=== PATIENT | female | born 1945 | race Caucasian/White ===

== ENCOUNTER → 2016-08-22 | Outpatient (CLI) | payer MEDICARE, OTHER ==
[2016-08-22 10:53] LABS: Hematocrit 46.1 % (36.0-46.0); Hemoglobin 14.8 g/dL (12.2-16.2); Mean Corpuscular Hemoglobin 28.3 pg (28.0-32.0); Mean Corpuscular Volume 88.3 fL (80.0-100.0); Mean Platelet Volume 8.1 fL (7.4-10.4); Platelet Count (auto) 413 10^3/uL (140-450); SUSPECT SEE PRINTOUT; White Blood Cell 10.1 10^3/uL (4.4-10.8)
[2016-08-22 11:04] LABS: Albumin 3.4 g/dL (3.4-5.0); BUN/Creatinine Ratio 14.7; Bilirubin, Total 0.3 mg/dL (0.2-1.0); Calcium 8.8 mg/dL (8.5-10.1); Potassium 3.6 mmol/L (3.5-5.1); Total Protein 7.3 g/dL (6.4-8.2)
[2016-08-22 11:17] LABS: Metamyelocytes % 0; Myelocytes % 0; Promyelocytes % 0; Reactive Lymphocytes 0
[2016-08-22 11:19] LABS: Platelet Estimate Adequate; RBC Morphology Normal
== END | disposition home or self-care (01) ==
LOC: LAB 10:18
PROVIDERS: ATTEND Internal Medicine
DX: I10 Essential (primary) hypertension (principal); E66.9 Obesity, unspecified; Z79.899 Other long term (current) drug therapy
CPT/HCPCS: 36415; 80053; 80061; 80307; 82043; 83036; 84439; 84443; 85007; 85027; 85652; 86141

== ENCOUNTER 2017-05-11 10:01 | Emergency (ER) | payer MEDICARE, MEDICAID ==
[~2017-05-11] VITALS: Ht 160 cm; Wt 109.8 kg
[2017-05-11 11:16] VITALS: BP 132/78
[2017-05-11] MEDS ORDERED: HYDROcodone-ACET 5/325MG TAB PO ONE (12:00)
[2017-05-11] MEDS ORDERED: KETOROLAC TROMETH 30 MG/ML 1ML VIAL IM ONE (12:00)
[2017-05-21] MEDS ORDERED: ALBUAER3 IN (15:08)
[2017-05-21] MEDS ORDERED: OXYB10TA13 PO (15:08)
[2017-05-21] MEDS ORDERED: IBUP800T24 PO (15:08)
[2017-05-21] MEDS ORDERED: FLUO-125 PO (15:08)
== END 2017-05-11 12:28 | disposition home or self-care (01) ==
LOC: ER 10:01
DX: S52.502A Unspecified fracture of the lower end of left radius, initial encounter for closed fracture (principal); J44.9 Chronic obstructive pulmonary disease, unspecified; Z90.49 Acquired absence of other specified parts of digestive tract; Z90.89 Acquired absence of other organs; W19.XXXA Unspecified fall, initial encounter; Y93.89 Activity, other specified; Y99.8 Other external cause status; Y92.89 Other specified places as the place of occurrence of the external cause
CPT/HCPCS: 29125; 73090; 73110; 73130; 96372; 99284; J1885

== ENCOUNTER 2017-05-25 09:45 | Day surgery (SDC) | payer MEDICARE, MEDICAID ==
[2017-05-21 14:49] LABS: Basophils # (auto) 0.1 uL; Basophils % (auto) 1.3 % (0.0-2.0); Eosinophils # (auto) 0.5 uL; Hematocrit 40.5 % (36.0-46.0); Hemoglobin 13.3 g/dL (12.2-16.2); Lymphocytes # (auto) 1.4 uL; Lymphocytes % (auto) 21.8 % (10.0-50.0); Mean Corpuscular Hemoglobin 30.9 pg (28.0-32.0); Mean Corpuscular Hgb Conc. 32.9 g/dL (32.0-36.0); Mean Corpuscular Volume 94.1 fL (80.0-100.0); Monocytes # (auto) 0.6 uL; Monocytes % (auto) 8.5 % (0.0-12.0); Neutrophils # (auto) 4.1 uL; Neutrophils % (auto) 61.4 % (37.0-80.0); Nucleated Red Blood Cells % 0.1 %; Platelet Count (auto) 355 10^3/uL (140-450); Red Cell Distribution Width 13.5 % (11.8-14.3); White Blood Cell 6.6 10^3/uL (4.4-10.8)
[2017-05-21 15:02] LABS: INR 0.98 (0.9-1.15); Partial Thromboplastin Time 28.1 sec (22.64-33.71); Prothrombin Time 10.7 sec (9.37-12.3)
[2017-05-21 15:05] LABS: Albumin 3.3 g/dL (3.4-5.0); BUN/Creatinine Ratio 16.2; Bilirubin, Total 0.4 mg/dL (0.2-1.0); Calcium 8.6 mg/dL (8.5-10.1); Potassium 3.7 mmol/L (3.5-5.1); Total Protein 7.3 g/dL (6.4-8.2)
[~2017-05-25] VITALS: Ht 157.5 cm; Wt 66.2 kg
[~2017-05-25 09:45] MED LIST: ALBUAER3 IN; FLUO-125 PO; IBUP800T24 PO; OXYB10TA13 PO
[2017-05-25] MEDS ORDERED: ceFAZolin 1GM/50ML 50 ML IV ONE (12:09)
[2017-05-25] MEDS ORDERED: ETOMIDATE (2MG/ML) 20ML VIAL IV ONE (12:21)
[2017-05-25] MEDS ORDERED: LIDOCAINE 1% (LOCAL ANESTH.) PF 5ml SDV ONE ×3 (13:05→13:54)
[2017-05-25] MEDS ORDERED: ROCURONIUM 10MG/ML 10ML VIAL IV ONE (13:11)
[2017-05-25] MEDS ORDERED: MIDAZOLAM HCL 1MG/1ML-2 ML VIAL ONE (13:12)
[2017-05-25] MEDS ORDERED: BUPIVACAINE 0.25% INJ 50ML VIAL ONE (13:53)
[2017-05-25] MEDS ORDERED: fentaNYL CITRATE 100 MCG/2 ML VL ONE (14:35)
[2017-05-25] MEDS ORDERED: NALOXONE HCL 0.4 MG/ML VIAL IV PRN (14:45)
[2017-05-25] MEDS ORDERED: ONDANSETRON HCL 4 MG/2 ML VIAL IV ONE (14:45)
[2017-05-25] MEDS ORDERED: hydrALAZINE HCL 20 MG/ML VL IV PRN (14:45)
[2017-05-25] MEDS ORDERED: ePHEDrine SULFATE 50 MG/ML AMP ONE (14:58)
[2017-05-25] MEDS ORDERED: ESMOLOL HCL 10 ML IV ONE (14:59)
[2017-05-25] MEDS ORDERED: KETOROLAC TROMETH 30 MG/ML 1ML VIAL ONE (16:55)
[2017-05-25] MEDS ORDERED: ALBUTEROL SULF 2.5 MG/0.5ML(0.5%) NEB SOLN NEB PRN (17:15)
[2017-05-25] MEDS: MORPHINE SULFATE 4 MG/ML SYR/VIAL IV PRN ×4 (17:25→17:55)
[2017-05-25 18:15] VITALS: BP 137/92
== END 2017-05-25 18:33 | disposition home or self-care (01) ==
LOC: SUR 09:45
PROVIDERS: ATTEND Orthopaedic Surgery Adult Reconstructive Orthopaedic Surgery
DX: S52.572A Other intraarticular fracture of lower end of left radius, initial encounter for closed fracture (principal); W19.XXXA Unspecified fall, initial encounter; Y93.89 Activity, other specified; Y92.9 Unspecified place or not applicable; Y99.9 Unspecified external cause status; J45.909 Unspecified asthma, uncomplicated; Z90.49 Acquired absence of other specified parts of digestive tract; I10 Essential (primary) hypertension; M19.90 Unspecified osteoarthritis, unspecified site; E66.9 Obesity, unspecified; F32.9 Major depressive disorder, single episode, unspecified; Z87.891 Personal history of nicotine dependence; G47.33 Obstructive sleep apnea (adult) (pediatric)
CPT/HCPCS: 25608; 36415; 73100; 76000; 80053; 85025; 85610; 85730; J0690; J1885; J2250; J2270; J3010; J3490

== ENCOUNTER → 2018-11-17 | Outpatient (CLI) | payer MEDICARE, MEDICAID ==
[~2018-11-17] MED LIST changes: -OXYB10TA13 PO; +OXYB10TA14 PO
[2018-11-17 10:28] LABS: Basophils # (auto) 0 uL; Basophils % (auto) 0.6 % (0.0-2.0); Eosinophils # (auto) 0.5 uL; Eosinophils % (auto) 8.3 % (0.0-7.0); Hematocrit 39.4 % (36.0-46.0); Hemoglobin 13.6 g/dL (12.2-16.2); Lymphocytes # (auto) 1.8 uL; Lymphocytes % (auto) 29.6 % (10.0-50.0); Mean Corpuscular Hemoglobin 30.9 pg (28.0-32.0); Mean Corpuscular Hgb Conc. 34.4 g/dL (32.0-36.0); Mean Corpuscular Volume 89.9 fL (80.0-100.0); Monocytes # (auto) 0.5 uL; Monocytes % (auto) 8.1 % (0.0-12.0); Neutrophils # (auto) 3.3 uL; Neutrophils % (auto) 53.4 % (37.0-80.0); Platelet Count (auto) 270 10^3/uL (140-450); Red Blood Cells 4.38 10^6/uL (4.0-5.20); Red Cell Distribution Width 12.3 % (11.8-14.3); White Blood Cell 6.1 10^3/uL (4.4-10.8)
[2018-11-17 10:49] LABS: Albumin 3.4 g/dL (3.4-5.0); Calcium 8.7 mg/dL (8.5-10.1); Potassium 3.9 mmol/L (3.5-5.1)
[2018-11-17 10:53] LABS: BUN/Creatinine Ratio 17.8; Bilirubin, Total 0.5 mg/dL (0.2-1.0); Total Protein 6.9 g/dL (6.4-8.2)
== END | disposition home or self-care (01) ==
LOC: LAB 09:51
PROVIDERS: ATTEND Nurse Practitioner
DX: Z00.00 Encounter for general adult medical examination without abnormal findings (principal); E78.5 Hyperlipidemia, unspecified
CPT/HCPCS: 36415; 80053; 80061; 84443; 85025

== ENCOUNTER 2019-09-02 01:52 | Inpatient (IN) | payer MEDICARE, MEDICAID ==
[~2019-09-02] VITALS: Ht 165.1 cm; Wt 117.4 kg
[2019-09-02 04:48] LABS: Basophils # (auto) 0.1 10 ^3/uL (0-0.2); Basophils % (auto) 0.7 % (0.0-2.0); Eosinophils # (auto) 0 10 ^3/uL (0-0.8); Eosinophils % (auto) 0.6 % (0.0-7.0); Hematocrit 41.2 % (36.0-46.0); Hemoglobin 13.3 g/dL (12.2-16.2); Lymphocytes # (auto) 0.5 10 ^3/uL (0.4-5.4); Lymphocytes % (auto) 6.3 % (10.0-50.0); Mean Corpuscular Hemoglobin 29.2 pg (28.0-32.0); Mean Corpuscular Hgb Conc. 32.3 g/dL (32.0-36.0); Mean Corpuscular Volume 90.5 fL (80.0-100.0); Monocytes # (auto) 0.8 10 ^3/uL (0-1.3); Monocytes % (auto) 10.4 % (0.0-12.0); Neutrophils # (auto) 6.5 10 ^3/uL (1.6-8.6); Platelet Count (auto) 323 10^3/uL (140-450); Red Blood Cells 4.56 10^6/uL (4.0-5.20); Red Cell Distribution Width 13.4 % (11.8-14.3)
[2019-09-02 05:15] LABS: INR 1.09 (0.9-1.15)
[2019-09-02 05:31] LABS: Albumin 2.9 g/dL (3.4-5.0); Anion Gap 8 (5-15); Blood Urea Nitrogen 22 mg/dL (7-18); Calcium 8.3 mg/dL (8.5-10.1); Carbon Dioxide 26 mmol/L (21-32); Chloride 107 mmol/L (98-107); Glucose 117 mg/dL (74-106); Sodium 141 mmol/L (136-145)
[2019-09-02 05:33] LABS: BUN/Creatinine Ratio 22.4; GFR African American 71 mL/min; GFR Non-African American 59 mL/min
[2019-09-02 05:38] LABS: Alanine Aminotransferase 14 U/L (13-56); Alkaline Phosphatase 75 U/L (45-117); Aspartate Aminotransferase 13 U/L (15-37); Bilirubin, Total 0.5 mg/dL (0.2-1.0)
[2019-09-02] MEDS ORDERED: DEXTROSE (50%) 50ML SYRG IV PRN (11:00)
[2019-09-02] MEDS ORDERED: ONDANSETRON HCL 4 MG/2 ML VIAL IV PRN (11:00)
[2019-09-02] MEDS ORDERED: MORPHINE SULF INJ 2 MG/ML SYRINGE 1ML IV PRN (11:00)
[2019-09-02] MEDS ORDERED: ACETAMINOPHEN 500 MG TAB PO PRN (11:00)
[2019-09-02] MEDS ORDERED: LABETALOL HCL 5 MG/ML ML 20ML VIAL IV PRN (11:00)
[2019-09-02] MEDS ORDERED: ALBUTEROL SULF 2.5 MG/0.5ML(0.5%) NEB SOLN NEB PRN (11:00)
[2019-09-02] MEDS ORDERED: METOPROLOL TARTRATE 25 MG TAB PO ONE (11:00)
[2019-09-02] MEDS ORDERED: NITROGLYCERIN 0.4 MG SL TAB SL PRN (11:00)
[2019-09-02] MEDS: ACCU-CHEK COMFORT CURVE STRIP VI SCH ×3 (12:49→23:45)
[2019-09-02] MEDS: levoFLOXacin 500MG 100 ML IV SCH (13:14)
[2019-09-02] MEDS: SODIUM CHLORIDE 0.9% 1,000 ML IV SCH ×2 (13:14→23:51)
[2019-09-02] MEDS ORDERED: PROC10TA2 PO (13:32)
[2019-09-02 13:33] LABS: Urine Bacteria NONE SEEN /hpf (None Seen); Urine Blood 1+ /uL (Negative); Urine Hyaline Cast FEW /lpf (0 - 2); Urine Mucus FEW (None Seen); Urine Specific Gravity 1.032 (1.001-1.035); Urine WBC 7 /hpf (0 - 5)
[2019-09-02 13:40] LABS: Amphetamine Screen, Urine NEGATIVE (NEGATIVE); Barbiturate Scree,Urine NEGATIVE (NEGATIVE); Benzodiazephine Screen, Urine NEGATIVE (NEGATIVE); Cannabinoid Screen, Urine NEGATIVE (NEGATIVE); Cocaine Screen, Urine NEGATIVE (NEGATIVE); Opiate Scree,Urine NEGATIVE (NEGATIVE); Phencyclidine Screen, Urine NEGATIVE (NEGATIVE)
[2019-09-02] MEDS ORDERED: risperiDONE 1 MG TAB PO ONE (18:00)
[2019-09-02 21:05] VITALS: BP 116/67
[2019-09-02] MEDS: ATORVASTATIN 20 MG TAB PO SCH (21:47)
[2019-09-02] MEDS: ENOXAPARIN SOD 120 MG/0.8 ML SYRINGE SC SCH (21:47)
[2019-09-02] MEDS ORDERED: BUDESONIDE (INHALATION) 0.5 MG/2 ML NEB NEB SCH (22:00)
[2019-09-02] MEDS: METOPROLOL TARTRATE 25 MG TAB PO SCH (22:06)
[2019-09-02 23:57] VITALS: BP 116/61
[2019-09-03 05:00] VITALS: BP 115/74
[2019-09-03] MEDS: ACCU-CHEK COMFORT CURVE STRIP VI SCH ×4 (07:40→21:48)
[2019-09-03 09:00] VITALS: BP 84/64
[2019-09-03 09:23] LABS: Albumin 2.9 g/dL (3.4-5.0); Calcium 8.5 mg/dL (8.5-10.1); Potassium 3.6 mmol/L (3.5-5.1)
[2019-09-03 09:27] LABS: BUN/Creatinine Ratio 22.6; Bilirubin, Total 0.5 mg/dL (0.2-1.0); Total Protein 6.9 g/dL (6.4-8.2)
[2019-09-03] MEDS: METOPROLOL TARTRATE 25 MG TAB PO SCH ×2 (10:00→22:31)
[2019-09-03] MEDS ORDERED: ENOXAPARIN SOD 40 MG/0.4 ML SYRINGE SC SCH (10:00)
[2019-09-03] MEDS: risperiDONE 1 MG TAB PO SCH (10:40)
[2019-09-03] MEDS: FLUoxetine HCL 20 MG CAP PO SCH (10:40)
[2019-09-03] MEDS: ASPirin 81 mg TAB PO SCH (10:41)
[2019-09-03] MEDS: levoFLOXacin 500MG 100 ML IV SCH (10:41)
[2019-09-03] MEDS: CHOLECALCIFEROL (VITD3) 1,000UNIT=25mCg TAB PO SCH (10:41)
[2019-09-03] MEDS: ASCORBIC ACID 1,000 MG TAB PO SCH (10:41)
[2019-09-03] MEDS: ZINC SULFATE 220mg CAP or TAB PO SCH (10:42)
[2019-09-03] MEDS: ENOXAPARIN SOD 120 MG/0.8 ML SYRINGE SC SCH ×2 (10:42→22:31)
[2019-09-03] MEDS ORDERED: BUDESONIDE (INHALATION) 0.5 MG/2 ML NEB NEB ONE (12:00)
[2019-09-03 13:00] VITALS: BP 96/63
[2019-09-03] MEDS: SODIUM CHLORIDE 0.9% 1,000 ML IV SCH (13:10)
[2019-09-03] MEDS: ALBUTEROL SULF HFA 90MCG INH 200DOSE IN SCH ×2 (14:40→22:44)
[2019-09-03 17:56] VITALS: BP 100/70
[2019-09-03] MEDS: traMADol HCL 50 MG TAB PO PRN (20:24)
[2019-09-03 22:00] VITALS: BP 117/77
[2019-09-03] MEDS: ATORVASTATIN 20 MG TAB PO SCH (22:30)
[2019-09-03] MEDS: BUDESONIDE (INHALATION) 0.5 MG/2 ML NEB NEB SCH (22:41)
[2019-09-04] MEDS: SODIUM CHLORIDE 0.9% 1,000 ML IV SCH ×2 (02:54→17:02)
[2019-09-04 03:32] VITALS: BP 117/77
[2019-09-04] MEDS: ALBUTEROL SULF HFA 90MCG INH 200DOSE IN SCH ×3 (06:40→22:00)
[2019-09-04] MEDS: ACCU-CHEK COMFORT CURVE STRIP VI SCH ×4 (06:50→22:30)
[2019-09-04 07:25] VITALS: BP 104/74
[2019-09-04 09:00] VITALS: BP 133/65
[2019-09-04] MEDS: BUDESONIDE (INHALATION) 0.5 MG/2 ML NEB NEB SCH ×2 (09:37→23:18)
[2019-09-04] MEDS: FLUoxetine HCL 20 MG CAP PO SCH (10:48)
[2019-09-04] MEDS: ENOXAPARIN SOD 120 MG/0.8 ML SYRINGE SC SCH ×2 (10:48→22:29)
[2019-09-04] MEDS: ASCORBIC ACID 1,000 MG TAB PO SCH (10:48)
[2019-09-04] MEDS: levoFLOXacin 500MG 100 ML IV SCH (10:48)
[2019-09-04] MEDS: ZINC SULFATE 220mg CAP or TAB PO SCH (10:48)
[2019-09-04] MEDS: ASPirin 81 mg TAB PO SCH (10:48)
[2019-09-04] MEDS: METOPROLOL TARTRATE 25 MG TAB PO SCH ×2 (10:49→22:00)
[2019-09-04] MEDS: risperiDONE 1 MG TAB PO SCH (10:49)
[2019-09-04] MEDS: CHOLECALCIFEROL (VITD3) 1,000UNIT=25mCg TAB PO SCH (10:50)
[2019-09-04 13:00] VITALS: BP 113/60
[2019-09-04] MEDS: traMADol HCL 50 MG TAB PO PRN ×2 (15:20→21:27)
[2019-09-04 17:00] VITALS: BP 94/64
[2019-09-04 22:00] VITALS: BP 95/62
[2019-09-04] MEDS: ATORVASTATIN 20 MG TAB PO SCH (22:29)
[2019-09-05] VITALS (7 sets, daily range): BP systolic 100–142; BP diastolic 60–91
[2019-09-05] MEDS: SODIUM CHLORIDE 0.9% 1,000 ML IV SCH (05:34)
[2019-09-05] MEDS: ACCU-CHEK COMFORT CURVE STRIP VI SCH ×2 (06:10→11:58)
[2019-09-05] MEDS: ALBUTEROL SULF HFA 90MCG INH 200DOSE IN SCH ×3 (06:35→22:00)
[2019-09-05] MEDS: traMADol HCL 50 MG TAB PO PRN ×3 (06:36→21:32)
[2019-09-05] MEDS: BUDESONIDE (INHALATION) 0.5 MG/2 ML NEB NEB SCH (07:31)
[2019-09-05] MEDS: METOPROLOL TARTRATE 25 MG TAB PO SCH (09:34)
[2019-09-05] MEDS: levoFLOXacin 500MG 100 ML IV SCH (09:39)
[2019-09-05] MEDS: FLUoxetine HCL 20 MG CAP PO SCH (09:40)
[2019-09-05] MEDS: ZINC SULFATE 220mg CAP or TAB PO SCH (09:40)
[2019-09-05] MEDS: ASPirin 81 mg TAB PO SCH (09:40)
[2019-09-05] MEDS: ASCORBIC ACID 1,000 MG TAB PO SCH (09:41)
[2019-09-05] MEDS: CHOLECALCIFEROL (VITD3) 1,000UNIT=25mCg TAB PO SCH (09:41)
[2019-09-05] MEDS: risperiDONE 1 MG TAB PO SCH (09:41)
[2019-09-05] MEDS: ENOXAPARIN SOD 120 MG/0.8 ML SYRINGE SC SCH (09:42)
[2019-09-05 09:54] LABS: Free T4 (Free Thyroxine) 0.85 ng/dL (0.89-1.76)
[2019-09-05 09:55] LABS: Free T3 1.73 pg/mL (2.3-4.2)
[2019-09-05] MEDS ORDERED: cefTRIAXone 1GM/50ML D5W 50 ML IV ONE (12:15)
[2019-09-05] MEDS: ATORVASTATIN 20 MG TAB PO SCH (21:31)
[2019-09-06] MEDS: BUDESONIDE (INHALATION) 0.5 MG/2 ML NEB NEB SCH ×2 (00:17→07:35)
[2019-09-06] MEDS: traMADol HCL 50 MG TAB PO PRN ×2 (02:40→16:24)
[2019-09-06 05:00] VITALS: BP 114/94
[2019-09-06 06:17] LABS: Basophils # (auto) 0 10 ^3/uL (0-0.2); Basophils % (auto) 0.5 % (0.0-2.0); Eosinophils # (auto) 0.1 10 ^3/uL (0-0.8); Eosinophils % (auto) 1.6 % (0.0-7.0); Hematocrit 37.1 % (36.0-46.0); Hemoglobin 12.3 g/dL (12.2-16.2); Lymphocytes # (auto) 0.7 10 ^3/uL (0.4-5.4); Lymphocytes % (auto) 9.8 % (10.0-50.0); Mean Corpuscular Hemoglobin 29.9 pg (28.0-32.0); Mean Corpuscular Hgb Conc. 33.1 g/dL (32.0-36.0); Mean Corpuscular Volume 90.2 fL (80.0-100.0); Monocytes % (auto) 14.6 % (0.0-12.0); Neutrophils % (auto) 73.5 % (37.0-80.0); Nucleated Red Blood Cells % 0.1 %; Platelet Count (auto) 312 10^3/uL (140-450); Red Blood Cells 4.11 10^6/uL (4.0-5.20); Red Cell Distribution Width 13.3 % (11.8-14.3); White Blood Cell 6.8 10^3/uL (4.4-10.8)
[2019-09-06 06:33] LABS: Albumin 2.6 g/dL (3.4-5.0); Calcium 8.6 mg/dL (8.5-10.1); Potassium 3.9 mmol/L (3.5-5.1)
[2019-09-06 06:37] LABS: BUN/Creatinine Ratio 18.5; Bilirubin, Total 0.7 mg/dL (0.2-1.0); Total Protein 6.6 g/dL (6.4-8.2)
[2019-09-06] MEDS: ALBUTEROL SULF HFA 90MCG INH 200DOSE IN SCH ×2 (07:35→14:25)
[2019-09-06 08:00] VITALS: BP 120/71
[2019-09-06 09:00] VITALS: BP_SYST 152; BP_SYST 93; BP_DIAS 46; BP_DIAS 78
[2019-09-06] MEDS ORDERED: cefTRIAXone 1GM/50ML D5W 50 ML IV SCH (09:00)
[2019-09-06] MEDS: ASPirin 81 mg TAB PO SCH (09:46)
[2019-09-06] MEDS: FLUoxetine HCL 20 MG CAP PO SCH (09:47)
[2019-09-06] MEDS: risperiDONE 1 MG TAB PO SCH (09:47)
[2019-09-06] MEDS: ZINC SULFATE 220mg CAP or TAB PO SCH (09:47)
[2019-09-06] MEDS: CHOLECALCIFEROL (VITD3) 1,000UNIT=25mCg TAB PO SCH (09:48)
[2019-09-06] MEDS: ASCORBIC ACID 1,000 MG TAB PO SCH (09:48)
[2019-09-06] MEDS ORDERED: ENOXAPARIN SOD 40 MG/0.4 ML SYRINGE SC SCH (10:00)
[2019-09-06 13:00] VITALS: BP 146/70
[2019-09-06 17:00] VITALS: BP 124/78
[2019-09-06] MEDS: ATORVASTATIN 20 MG TAB PO SCH (21:11)
[2019-09-06 22:06] VITALS: BP 97/64
== END 2019-09-06 22:00 | disposition home or self-care (01) | DRG 137 ==
LOC: EDBD 01:52 → ER 01:53 → TELE 01:54 → TELE-EAST 21:05
PROVIDERS: ADMIT Internal Medicine; ATTEND Internal Medicine
DX: U07.1 COVID-19 (principal); G92 Toxic encephalopathy; J12.89 Other viral pneumonia; I48.91 Unspecified atrial fibrillation; E87.6 Hypokalemia; N39.0 Urinary tract infection, site not specified; R73.9 Hyperglycemia, unspecified; E66.01 Morbid (severe) obesity due to excess calories; F03.90 Unspecified dementia, unspecified severity, without behavioral disturbance, psychotic disturbance, mood disturbance, and anxiety; F17.200 Nicotine dependence, unspecified, uncomplicated; F32.9 Major depressive disorder, single episode, unspecified; K57.90 Diverticulosis of intestine, part unspecified, without perforation or abscess without bleeding; M19.90 Unspecified osteoarthritis, unspecified site; Z79.82 Long term (current) use of aspirin; Z79.899 Other long term (current) drug therapy; Z86.73 Personal history of transient ischemic attack (TIA), and cerebral infarction without residual deficits; Z68.41 Body mass index [BMI] 40.0-44.9, adult; J96.00 Acute respiratory failure, unspecified whether with hypoxia or hypercapnia; E44.1 Mild protein-calorie malnutrition
CPT/HCPCS: 36415; 70450; 71045; 72125; 74176; 80053; 80307; 81001; 82550; 82962; 83036; 83605; 83880; 84439; 84443; 84481; 84484; 85025; 85610; 85652; 85730; 86141; 87040; 87070; 87086; 87804; 87880; 93005; 93886; 94640; 96365; 96372; G0378; J0696; J1956

== ENCOUNTER 2024-03-30 10:07 | Inpatient (IN) | payer OTHER, MEDICAID ==
[~2024-03-30] VITALS: Ht 162.6 cm; Wt 101.2 kg
[~2024-03-30 10:07] MED LIST changes: +IBUP-1456 PO; -IBUP800T24 PO; +PROC10TA6 PO
--- NOTE | 2024-03-30 10:25 | ED.PDOC ---
History of Present Illness HPI Comments 78-year-old female came to the ER after a fall. Patient stood up from bed and fell landing on her buttocks. Denies loss of consciousness. When paramedics arrived her rhythm was irregular. She has no history of atrial fibrillation. She denies taking any medications. She is able to move all extremities. Her heart rate has been fluctuating from 70 to low 100. Saturation pristine on room air. Denies any other symptoms. Chief Complaint: Syncope Time Seen by MD: 10:08 Primary Care Provider: UNKNOWN Reviewed Notes: Nurses Notes, Medications, Allergies Allergies: Coded Allergies: No Known Drug Allergy (Verified Allergy, Unknown, 05/21/17) Home Meds Reported Medications Prochlorperazine Maleate (Compazine) 10 Mg Tb, 5 MG PO Q8HPRN PRN for NAUSEA / VOMITING, #15 TAB 09/02/19 Albuterol Sulfate (VENTOLIN MDI) 90 Mcg Ih, 1 PUFF IN Q6HP PRN for SHORTNESS OF BREATH 05/21/17 Oxybutynin Chloride (Ditropan Xl) 10 Mg Tab, 10 MG PO BID, TAB 05/21/17 Fluoxetine Hcl (Fluoxetine Hcl) 20 Mg Cap, 20 MG PO DAILY for 30 Days, MG 05/21/17 Ibuprofen (Ibuprofen) 800 Mg Tab, 800 MG PO BID PRN for PAIN, MG 05/21/17 Information Source: Patient, Emergency Med Personnel Mode of Arrival: EMS Severity: Moderate Timing: Hours Duration: Since onset Past Medical History PAST MEDICAL HISTORY: Asthma, COPD, Depression 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 Family History Family History: Pt Confused Social History Smoker: Pt Confused Alcohol: Pt Confused Drugs: Pt Confused Lives In: Home Constitutional: denies: chills, diaphoresis, fatigue, fever, malaise, sweats, weakness, others EENTM: denies: blurred vision, double vision, ear bleeding, ear discharge, ear drainage, ear pain, ear ringing, eye pain, eye redness, hearing loss, mouth pain, mouth swelling, nasal discharge, nose bleeding, nose congestion, nose pain, photophobia, tearing, throat pain, throat swelling, voice changes, others Respiratory: denies: cough, hemoptysis, orthopnea, SOB at rest, shortness of breath, SOB with excertion, stridor, wheezing, others Cardiovascular: reports: syncope; denies: chest pain, dizzy spells, diaphoresis, Dyspnea on exertion, edema, irregular heart beat, left arm pain, lightheadedness, palpitations, PND, others Gastrointestinal: denies: abdomen distended, abdominal pain, blood streaked bowels, constipated, diarrhea, dysphagia, difficulty swallowing, hematemesis, melena, nausea, poor appetite, poor fluid intake, rectal bleeding, rectal pain, vomiting, others Genitourinary: denies: abnormal vagina bleeding, burning, dyspareunia, dysuria, flank pain, frequency, hematuria, incontinence, pain, , vagina discharge, urgency, others Neurological: denies: dizziness, fainting, headache, left sided numbness, left sided weakness, numbness, paresthesia, pre-existing deficit, right sided numbness, right sided weakness, seizure, speech problems, tingling, tremors, weakness, others Musculoskeletal: denies: back pain, gout, joint pain, joint swelling, muscle pain, muscle stiffness, neck pain, others Integumetry: denies: bruises, change in color, change in hair/nails, dryness, laceration, lesions, lumps, rash, wounds, others Allergic/Immunocompromised: denies: Difficulty Healing, Frequent Infections, Hives, Itching, others Hematologic/Lymphatic: denies: anemia, blood clots, easy bleeding, easy bruising, swollen glands, others Endocrine: denies: excessive hunger, excessive sweating, excessive thirst, excessive urination, flushing, intolerance to cold, intolerance to heat, unexplained weight gain, unexplained weight loss, others Psychiatric: denies: anxiety, bipolar disorder, depression, hopeless, panic disorder, schizophrenia, sleepless, suicidal, others Physical Exam General Appearance: Moderate Distress HEENT: Normal ENT Inspection, Pharynx Normal, TMs Normal Neck: Full Range of Motion, Non-Tender, Normal, Normal Inspection Respiratory: Chest Non-Tender, Lungs Clear, No Accessory Muscle Use, No Respiratory Distress, Normal Breath Sounds Cardiovascular: No Edema, No JVD, No Murmur, No Gallop, Normal Peripheral Pulses, Regular Rate/Rhythm Breast Exam: Deferred Gastrointestinal: No Organomegaly, Non Tender, No Pulsatile Mass, Normal Bowel Sounds, Soft Genitalia: Deferred Pelvic: Deferred Rectal: Deferred Extremities: Normal inspection Musculoskeletal : Apperance: Normal Neurologic: Alert Cerebellar Function: NOT DONE Reflexes: NOT DONE Skin: Normal Color Peripheral Pulses: 3+ Radial (R), 3+ Radial (L) Lymphatic: No Adenopathy Was a procedure done? Was a procedure done?: No Differential Dx Considerations may include: Syncope Electrolyte imbalance X-Ray, Labs, Meds, VS Vital Signs Date Time Temp Pulse Resp B/P (MAP) Pulse Ox O2 Delivery O2 Flow Rate FiO2 03/30/24 10:08 98.0 74 16 105/55 (72) 94 Time of 1ST Reevaluation: 10:24 Reevaluation 1ST: Unchanged Patient Education/Counseling: Diagnosis, Treatment, Prognosis Family Education/Counseling: No Family Present Departure 1 Departure Time of Disposition: 10:24 Impression: Primary Impression: Syncope Qualified Codes: R55 - Syncope and collapse Additional Impression: Atrial fibrillation Qualified Codes: I48.0 - Paroxysmal atrial fibrillation Disposition: ADMITTED INPATIENT Admit to: Med Surg Condition: Guarded Critical Care Note Critical Care Time?: Yes (45 min-critical care time only) Stability Stability form required: No Heart Score Heart Score: Heart Score Response (Comments) Value History Slightly Suspicious 0 EKG Normal 0 Age >65 2 Risk Factors >3 or Hx ASHD 2 Troponin Normal limit 0 Total 4 MARY MCFARLAND MD Mar 30, 2024 10:25
--- NOTE | 2024-03-30 11:09 | DVH ---
CHEST RADIOGRAPH Indication: sob Technique: Single frontal view of the chest was obtained Comparison: CHEST PORTABLE on DOS: 09/06/19, CHEST PORTABLE on DOS: 09/03/19, CHEST PORTABLE on DOS: 12/12 FINDINGS: Lines and Tubes: None Lungs: No focal consolidation. Pleura: No effusion. No pneumothorax. Cardiomediastinal contours: Unremarkable Bones: No acute osseous abnormality. IMPRESSION: No acute cardiopulmonary disease.
[2024-03-30 11:12] LABS: Basophils # (auto) 0.1 10 ^3/uL (0-0.2); Basophils % (auto) 1.2 % (0.0-2.0); Eosinophils # (auto) 0.2 10 ^3/uL (0-0.8); Eosinophils % (auto) 4.9 % (0.0-7.0); Hematocrit 43.9 % (36.0-46.0); Hemoglobin 14.5 g/dL (12.2-16.2); Lymphocytes # (auto) 1.5 10 ^3/uL (0.4-5.4); Lymphocytes % (auto) 34.4 % (10.0-50.0); Mean Corpuscular Hemoglobin 30.5 pg (28.0-32.0); Mean Corpuscular Volume 92.4 fL (80.0-100.0); Monocytes # (auto) 0.4 10 ^3/uL (0-1.3); Monocytes % (auto) 8.5 % (0.0-12.0); Neutrophils # (auto) 2.2 10 ^3/uL (1.6-8.6); Nucleated Red Blood Cells % 0.1 %; Platelet Count (auto) 233 10^3/uL (140-450); Red Blood Cells 4.76 10^6/uL (4.0-5.20); Red Cell Distribution Width 13.7 % (11.8-14.3); White Blood Cell 4.3 10^3/uL (4.4-10.8)
[2024-03-30 11:19] LABS: Chloride 106 mmol/L (98-107); Potassium 3.8 mmol/L (3.5-5.1); Sodium 141 mmol/L (136-145)
[2024-03-30 11:20] LABS: Anion Gap 6 (5-15); Calcium 9.9 mg/dL (8.7-10.4); Carbon Dioxide 29 mmol/L (20-31)
[2024-03-30 11:25] LABS: BUN/Creatinine Ratio 20.2 (10.0-20.0); Blood Urea Nitrogen 19 mg/dL (9-23)
[2024-03-30 11:28] LABS: Glucose 109 mg/dL (74-106)
--- NOTE | 2024-03-30 13:30 | DVH ---
EXAM: CT HEAD WITHOUT CONTRAST HISTORY: syncope COMPARISON: HEAD WITHOUT CONTRAST on DOS: 09/02/19, CERVICAL WITHOUT CONTRAST on DOS: 09/02/19 TECHNIQUE: Axial images of the head were obtained and reformatted in coronal and sagittal planes. All CT scans at this medical facility are performed using dose modulation techniques as appropriate t o a performed exam including the following: Automated exposure control was utilized; adjustment of th e MA and/or KV according to patient size; and use of iterative reconstruction technique. CT Dose: CTDI volume is 57.04 mGy. Dose-length product is 1010.0 mGy*cm FINDINGS: There is no evidence of acute intracranial hemorrhage, mass, mass effect midline shift. There is no h ydrocephalus or extra-axial fluid collection. 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 There are moderate chronic small-vessel white matter ischemic changes. There is a small wedge defect in the right posterior cerebellum which May also relate to chronic infarct. The bryan-white ma tter differentiation otherwise appears maintained. The visualized paranasal sinuses and mastoid air cells are clear. The calvarium is intact. IMPRESSION: 1. No acute intracranial process. HS:Y
--- NOTE | 2024-03-30 15:36 | ECG ---
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
[2024-03-30] MEDS ORDERED: ALBUTEROL SULF 2.5 MG/0.5ML(0.5%) NEB SOLN NEB PRN (19:15)
[2024-03-30] MEDS ORDERED: NITROGLYCERIN 0.4 MG SL TAB SL PRN (19:15)
[2024-03-30] MEDS ORDERED: MORPHINE SULFATE INJ 2 MG/ml SYRG IV PRN (19:15)
--- NOTE | 2024-03-30 23:17 | DVH ---
Carotid Duplex Clinical History: syncope Comparison: None Technique: Duplex doppler evaluation of the extracranial carotid and vertebral arteries including color doppler and spectral/pulsed waveform analysis was performed. Findings: RIGHT SIDE: Mild plaque at right bifurcation. The peak systolic velocities are 68 cm/s in the CCA, 55 cm/s in the ICA. The ICA/CCA ratio is 0.8. The external carotid artery is patent with peak systolic velocity of 74 cm/s proximally. There is appropriate antegrade flow in the right vertebral artery. LEFT SIDE: Mild calcified plaque at left chronic bifurcation. The peak systolic velocities are 64 cm/s in the CCA, 65 cm/s in the ICA. The ICA/CCA ratio is 1.0. The external carotid artery is patent with peak systolic velocity of 76 cm/s proximally. There is appropriate antegrade flow in the left vertebral artery. IMPRESSION: No evidence of hemodynamically significant stenosis in bilateral carotid arteries. Reference: Radiology 2003; 229:340-346 Normal ICA PSV is <125 cm/sec and no plaque or intimal thickening is visible sonographically Additional criteria include ICA/CCA PSV ratio <2.0 and ICA EDV <40 cm/sec <50% ICA stenosis ICA PSV is <125 cm/sec and plaque or intimal thickening is visible sonographically Additional criteria include ICA/CCA PSV ratio <2.0 and ICA EDV <40 cm/sec 50-69% ICA stenosis ICA PSV is 125-230 cm/sec and plaque is visible sonographically Additional criteria include ICA/CCA PSV ratio of 2.0-4.0 and ICA EDV of 40-100 cm/sec 70% ICA stenosis but less than near occlusion ICA PSV is >230 cm/sec at visible plaque at luminal narrowing are seen at bryan-scale at color doppler ultrasound (the higher the doppler parameters lie above the threshold of 230 cm/sec, the greater the likelihood of severe disease) Additional criteria include ICA/CCA PSV ratio >4 and ICA EDV >100 cm/sec
[2024-03-30 23:31] VITALS: PULSE 90; RESP 18; O2SAT 98
[2024-03-30] MEDS: ACETAMINOPHEN 325 MG TAB PO PRN (23:43)
[2024-03-31] VITALS (15 sets, daily range): BP systolic 101–159; BP diastolic 48–92; PULSE 78–114; RESP 16–19; TEMP 97.7–98.9; O2SAT 92–98
--- NOTE | 2024-03-31 00:20 | DVHHP2 ---
History of Present Illness Reason for Visit: Syncope History of Present Illness 78-year-old female presents for evaluation of syncopal episode. Patient reports that today around seven in the morning she finished washing her face when she was walking back to her wheelchair she became dizzy. She reports waking up surrounded by her family. She was found on her wheelchair leaning to the side. Family reports patient being slightly confused for 30 minutes. Currently she is back to baseline. Denies headache. Continues to report mild dizziness. No headache or blurred vision. Denies chest pain or shortness for breath. No other acute complaints at the moment. Past Medical History COPD, depression, asthma Past Surgical History Denies Family History Noncontributory Smoke: No ALCOHOL: none Drugs: None Lives: with Family Review of Systems Review of Systems Review of systems currently negative otherwise addressed in HPI. Allergies: Coded Allergies: No Known Drug Allergy (Verified Allergy, Unknown, 05/21/17) Medications Current Medications Medications Dose Ordered Sig/Vidal Route Start Time Stop Time Status Last Admin Dose Admin Albuterol 2.5 mg Q6HPRN PRN NEB 03/30/24 19:15 Fluoxetine HCl 20 mg DAILY PO 03/31/24 10:00 Ondansetron HCl 4 mg Q4HP PRN IV 03/30/24 19:15 Enoxaparin Sodium 40 mg DAILY SC 03/31/24 10:00 Acetaminophen 650 mg Q6HP PRN PO 03/30/24 19:15 03/30/24 23:43 650 MG Nitroglycerin 0.4 mg Q5MINP PRN SL 03/30/24 19:15 Morphine Sulfate 2 mg Q30M PRN IV 03/30/24 19:15 Exam Vital Signs Vital Signs Date Time Temp Pulse Resp B/P (MAP) Pulse Ox O2 Delivery O2 Flow Rate FiO2 03/31/24 00:05 97.9 101 16 127/88 95 0.0 21 97.9 Exam Gen: 78-year-old female in no apparent distress Skin: Warm, dry, normal color and texture, no rash. HEENT: Normocephalic atraumatic, mucous membranes moist and pink. Neck: Cervical and supraclavicular nodes normal without enlargement, trachea is midline, thyroid gland is normal without masses. Pulmonary: Clear to auscultation and percussion bilaterally. Cardiac: Regular rate and rhythm. No murmur Abdomen: Soft, nontender, nondistended, bowel sounds present all 4 quadrants, no guarding, no rigidity, no organomegaly. Extremities: No cyanosis, clubbing, no edema Neuro: Cranial nerves II through XII grossly intact, normal affect and speech, no focal motor deficits. Labs/Xrays ORDERING PHYSICIAN: MARY MCFARLAND MD PROCEDURE(s): CXRP - CHEST PORTABLE REASON: sob ORDER NUMBER(s): [id number], ACCESSION NUMBER(s): [id number] CHEST RADIOGRAPH Indication: sob Technique: Single frontal view of the chest was obtained Comparison: CHEST PORTABLE on DOS: 09/06/19, CHEST PORTABLE on DOS: 09/03/19, CHEST PORTABLE on DOS: 09/02/19 FINDINGS: Lines and Tubes: None Lungs: No focal consolidation. Pleura: No effusion. No pneumothorax. Cardiomediastinal contours: Unremarkable Bones: No acute osseous abnormality. IMPRESSION: No acute cardiopulmonary disease. RING PHYSICIAN: MARY MCFARLAND MD PROCEDURE(s): HWOCT - HEAD WITHOUT CONTRAST REASON: syncope ORDER NUMBER(s): [id number], ACCESSION NUMBER(s): [id number] EXAM: CT HEAD WITHOUT CONTRAST HISTORY: syncope COMPARISON: HEAD WITHOUT CONTRAST on DOS: 09/02/19, CERVICAL WITHOUT CONTRAST on DOS: 09/02/19 TECHNIQUE: Axial images of the head were obtained and reformatted in coronal and sagittal planes. All CT scans at this medical facility are performed using dose modulation techniques as appropriate to a performed exam including the following: Automated exposure control was utilized; adjustment of the MA and/or KV according to patient size; and use of iterative reconstruction technique. CT Dose: CTDI volume is 57.04 mGy. Dose-length product is 1010.0 mGy*cm FINDINGS: There is no evidence of acute intracranial hemorrhage, mass, mass effect midline shift. There is no hydrocephalus or extra-axial fluid collection. 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 There are moderate chronic small-vessel white matter ischemic changes. There is a small wedge defect in the right posterior cerebellum which May also relate to chronic infarct. The bryan-white matter differentiation otherwise appears maintained. The visualized paranasal sinuses and mastoid air cells are clear. The calvarium is intact. IMPRESSION: 1. No acute intracranial process. HS:Y RING PHYSICIAN: MANUEL LYONS PROCEDURE(s): CARCL - CAROTID DUPLX W COLOR DOP REASON: syncope ORDER NUMBER(s): [id number], ACCESSION NUMBER(s): [id number] Carotid Duplex Clinical History: syncope Comparison: None Technique: Duplex doppler evaluation of the extracranial carotid and vertebral arteries including color doppler and spectral/pulsed waveform analysis was performed. Findings: RIGHT SIDE: Mild plaque at right bifurcation. The peak systolic velocities are 68 cm/s in the CCA, 55 cm/s in the ICA. The ICA/CCA ratio is 0.8. The external carotid artery is patent with peak systolic velocity of 74 cm/s proximally. There is appropriate antegrade flow in the right vertebral artery. LEFT SIDE: Mild calcified plaque at left chronic bifurcation. The peak systolic velocities are 64 cm/s in the CCA, 65 cm/s in the ICA. The ICA/CCA ratio is 1.0. The external carotid artery is patent with peak systolic velocity of 76 cm/s proximally. There is appropriate antegrade flow in the left vertebral artery. IMPRESSION: No evidence of hemodynamically significant stenosis in bilateral carotid arteries. Labs Test 03/30/24 10:49 Range/Units White Blood Count 4.3 L 4.4-10.8 10^3/uL Red Blood Count 4.76 4.0-5.20 10^6/uL Hemoglobin 14.5 12.2-16.2 g/dL Hematocrit 43.9 36.0-46.0 % Mean Corpuscular Volume 92.4 80.0-100.0 fL Mean Corpuscular Hemoglobin 30.5 28.0-32.0 pg Mean Corpuscular Hemoglobin Concent 33.0 32.0-36.0 g/dL Red Cell Distribution Width 13.7 11.8-14.3 % Platelet Count 233 140-450 10^3/uL Mean Platelet Volume 7.4 6.9-10.8 fL Neutrophils (%) (Auto) 51.0 37.0-80.0 % Lymphocytes (%) (Auto) 34.4 10.0-50.0 % Monocytes (%) (Auto) 8.5 0.0-12.0 % Eosinophils (%) (Auto) 4.9 0.0-7.0 % Basophils (%) (Auto) 1.2 0.0-2.0 % Neutrophils # (Auto) 2.2 1.6-8.6 10 ^3/uL Lymphocytes # (Auto) 1.5 0.4-5.4 10 ^3/uL Monocytes # (Auto) 0.4 0-1.3 10 ^3/uL Eosinophils # (Auto) 0.2 0-0.8 10 ^3/uL Basophils # (Auto) 0.1 0-0.2 10 ^3/uL Nucleated Red Blood Cells 0.1 % Sodium Level 141 136-145 mmol/L Potassium Level 3.8 3.5-5.1 mmol/L Chloride Level 106 98-107 mmol/L Carbon Dioxide Level 29 20-31 mmol/L Anion Gap 6 5-15 Blood Urea Nitrogen 19 9-23 mg/dL Creatinine 0.94 0.550-1.02 mg/dL Glomerular Filtration Rate Calc 62 >90 mL/min BUN/Creatinine Ratio 20.2 H 10.0-20.0 Serum Glucose 109 H 74-106 mg/dL Calcium Level 9.9 8.7-10.4 mg/dL Troponin I High Sensitivity 7 </=34 ng/L Assessment/Plan Assessment/Plan Assessment Syncope Obesity Plan Admit the patient to telemetry to the hospitalist Echocardiogram pending Cardiology consultation Continue treatment per orders. Plan discussed with: Patient My Orders Orders - MANUEL LYONS Procedure Category Date Status Time Albuterol Medneb PHA 03/30/24 In Process (Ventolin Medneb) 19:15 Fluoxetine Capsule PHA 03/31/24 In Process (Prozac Capsule) 10:00 Basic Metabolic Panel LAB 03/31/24 Logged 04:00 Admit ADMIT 03/30/24 Transmitted 19:05 Ondansetron Hcl PHA 03/30/24 In Process (Zofran) 19:15 Enoxaparin Sodium PHA 03/31/24 In Process (Lovenox) 10:00 Cardiac DIET 03/31/24 Transmitted Diet-2gna,Lofat,Lochol Breakfast Echo 2d Mode Cardiac US 03/30/24 Logged DOP 19:05 Carotid Duplx W Color US 03/30/24 Resulted DOP 19:05 Condition: Fair JANELL 03/30/24 In Process 19:05 Acetaminophen Tablet PHA 03/30/24 In Process (Tylenol Tablet) 19:15 Bedrest With Bathroom JANELL 03/30/24 In Process Privileg 19:05 Nitroglycerin PHA 03/30/24 In Process Sublingual (Ntrostat 19:15 Morphine Sulfate PHA 03/30/24 In Process Injection 19:15 Stat Ekg For Chest JANELL 03/30/24 In Process Pain 19:05 Notify Md Of Changes JANELL 03/30/24 In Process From Base 19:05 Professional Security Officer For [facility] 03/30/24 In Process 24 Hours 19:05 Emergency Dysrhythmia [facility] 03/30/24 In Process Protocol 19:05 Rhythm Strips Once [facility] 03/30/24 In Process Every Shift 19:05 Oxygen By Nasal RT 03/30/24 Transmitted Cannula 19:05 Date of Service: Mar 30, 2024 Billing Provider: MANUEL LYONS Common Visit Codes: [id number] INP/OBS CARE (HIGH) MANUEL LYONS Mar 31, 2024 00:20
[2024-03-31] MEDS: HYDROcodone-ACET 5/325MG TAB PO PRN (05:21)
[2024-03-31 08:19] LABS: Anion Gap 6 (5-15); Carbon Dioxide 26 mmol/L (20-31); Chloride 107 mmol/L (98-107); Potassium 3.7 mmol/L (3.5-5.1); Sodium 139 mmol/L (136-145)
[2024-03-31 08:20] LABS: Calcium 9.5 mg/dL (8.7-10.4)
[2024-03-31 08:25] LABS: BUN/Creatinine Ratio 22.4 (10.0-20.0); Blood Urea Nitrogen 19 mg/dL (9-23); Glucose 88 mg/dL (74-106)
[2024-03-31] MEDS: ENOXAPARIN SOD 40 MG/0.4 ML SYRINGE SC SCH (09:37)
[2024-03-31] MEDS: FLUoxetine HCL 20 MG CAP PO SCH (09:39)
[2024-03-31 10:55] LABS: Urine Bacteria FEW /hpf (None Seen); Urine Blood Negative /uL (Negative); Urine Color Yellow (Yellow); Urine Protein, UAD Negative (Negative); Urine Squamous Epithelial Cell FEW /hpf (<5); Urine Urobilinogen 3 mg/dL (Negative); Urine WBC 1 /HPF (0-5); Urine pH 5.5 (5.0-9.0)
[2024-03-31 10:56] LABS: Urine Clarity Clear (Clear)
--- NOTE | 2024-03-31 13:38 | DVHPN2 ---
Reviewed: Care Plan, H&P, Labs, Medications, Previous Orders, Radiology Changes from previous H/P or p: No Changes Objective Vitals Vital Signs Date Time Temp Pulse Resp B/P (MAP) Pulse Ox O2 Delivery O2 Flow Rate FiO2 03/31/24 08:43 93 Room Air* 0 21 03/31/24 08:30 97.7 89 19 116/59 (78) 97.7 Intake/Output Intake and Output 03/31/24 07:00 Intake Total 350 ml Balance 350 ml Intake Oral 350 ml # Voids 1 Medications Current Medications Medications Dose Ordered Sig/Vidal Route Start Time Stop Time Status Last Admin Dose Admin Albuterol 2.5 mg Q6HPRN PRN NEB 03/30/24 19:15 Fluoxetine HCl 20 mg DAILY PO 03/31/24 10:00 03/31/24 09:39 20 MG Ondansetron HCl 4 mg Q4HP PRN IV 03/30/24 19:15 Enoxaparin Sodium 40 mg DAILY SC 03/31/24 10:00 03/31/24 09:37 40 MG Acetaminophen 650 mg Q6HP PRN PO 03/30/24 19:15 03/31/24 13:06 650 MG Nitroglycerin 0.4 mg Q5MINP PRN SL 03/30/24 19:15 Morphine Sulfate 2 mg Q30M PRN IV 03/30/24 19:15 Acetaminophen/ Hydrocodone Bitart 1 tab Q8HPRN PRN PO 03/31/24 05:15 03/31/24 09:39 1 TAB Laboratory Results Laboratory Tests 03/30/24 10:49 03/31/24 07:00 Chemistry Test 03/31/24 07:00 Calcium Level 9.5 mg/dL (8.7-10.4) Urinalysis Test 03/31/24 10:34 Urine Color Yellow (Yellow) Urine Clarity Clear (Clear) Urine pH 5.5 (5.0-9.0) Urine Specific [place] 1.030 (1.001-1.035) Urine Protein Negative (Negative) Urine Ketones Negative (Negative) Urine Blood Negative /uL (Negative) Urine Nitrite Negative (Negative) Urine Bilirubin Negative (Negative) Urine Urobilinogen 3 mg/dL (Negative) H Urine Leukocyte Esterase Negative /uL (Negative) Urine RBC None seen /hpf (0 - 4) Urine Microscopic WBC 1 /HPF (0-5) Urine Squamous Epithelial Cells Few /hpf (<5) Urine Bacteria Few /hpf (None Seen) H Urine Glucose Normal mg/dL (Normal) Labs and/or images reviewed: Labs reviewed by me, Image(s) reviewed by me Assessment/Plan Assessment/Plan Syncope unknown etiology: CBC with normal limits complete metabolic panel with a normal limits CT head negative, chest x-ray negative carotid ultrasound negative, echocardiogram pending, cardiology consult pending Will check Alison test COVID test D-dimer COPD Depression Asthma Rule out seizures Leonid at the bedside Plan discussed with: Patient Date of Service: Mar 31, 2024 Billing Provider: GRETEL PIERCE MD Common Visit Codes: [id number] INP/OBS CARE(HIGH) GRETEL PIERCE MD Mar 31, 2024 13:38
--- NOTE | 2024-03-31 15:59 | DVHINCON2 ---
Date Seen: Mar 31, 2024 Referring Physician MD Terry Reason for Consultation Syncope History of Present Illness This is a 78-year-old female patient who presents to the emergency room status post syncopal episode. The patient reports that approximately 8:00 a.m. yesterday she was walking from the restroom to her living room when suddenly she began to feel dizzy and sustained a syncopal episode. She reports she fell onto her couch and lost consciousness. Patient was found by her who then was calling out her name and she reports being able to open her eyes but was unable to respond to him. EMS was called and the patient was brought to the emergency room for further evaluation. Cardiology has now been consulted for syncope. Initial twelve lead electrocardiogram reveals atrial fibrillation. Significant past medical history includes hypertension and obesity. She denies taking any prescribed medications. Past Medical History Past medical history reviewed. No other significant than mentioned above. Past Surgical History Tonsillectomy x3 Cholecystectomy Bilateral cataract removal Family History: Patient reports no known family medical history. Family History Family history reviewed. Social History Denies the use of tobacco, alcohol or illicit drugs. Allergies: Coded Allergies: No Known Drug Allergy (Verified Allergy, Unknown, 05/21/17) Home Meds Reported Medications Prochlorperazine Maleate (Compazine) 10 Mg Tb, 5 MG PO Q8HPRN PRN for NAUSEA / VOMITING, #15 TAB 09/02/19 Albuterol Sulfate (VENTOLIN MDI) 90 Mcg Ih, 1 PUFF IN Q6HP PRN for SHORTNESS OF BREATH 05/21/17 Oxybutynin Chloride (Ditropan Xl) 10 Mg Tab, 10 MG PO BID, TAB 05/21/17 Fluoxetine Hcl (Fluoxetine Hcl) 20 Mg Cap, 20 MG PO DAILY for 30 Days, MG 05/21/17 Ibuprofen (Ibuprofen) 800 Mg Tab, 800 MG PO BID PRN for PAIN, MG 05/21/17 Home Meds Home medications reviewed. Current Medications Current Medications Medications (Trade) Dose Ordered Sig/Vidal Route PRN Reason Start Time Stop Time Status Last Admin Albuterol (Ventolin Medneb) 2.5 mg Q6HPRN PRN NEB SHORTNESS OF BREATH 03/30/24 19:15 Fluoxetine HCl (PROzac CAPSULE) 20 mg DAILY PO 03/31/24 10:00 03/31/24 09:39 Ondansetron HCl (Zofran) 4 mg Q4HP PRN IV NAUSEA / VOMITING 03/30/24 19:15 Enoxaparin Sodium (Lovenox) 40 mg DAILY SC 03/31/24 10:00 03/31/24 09:37 Acetaminophen (Tylenol Tablet) 650 mg Q6HP PRN PO PAIN SCALE 1-3 OR TEMP>100.4 03/30/24 19:15 03/31/24 13:06 Nitroglycerin (Ntrostat Sublingual) 0.4 mg Q5MINP PRN SL FOR CHEST PAIN 03/30/24 19:15 Morphine Sulfate 2 mg Q30M PRN IV FOR CHEST PAIN 03/30/24 19:15 Acetaminophen/ Hydrocodone Bitart ([place]ling 5/325MG Tab) 1 tab Q8HPRN PRN PO MODERATE PAIN (4-6 PAIN SCALE) 03/31/24 05:15 03/31/24 09:39 Review of Systems Constitutional: No symptom reported Ears, Nose, & Throat: No symptom reported Eyes: No symptom reported Neurological: Syncope, dizziness Pulmonary/Respiratory: No symptoms reported Cardiovascular: No symptom reported Gastrointestinal: No symptom reported Genitourinary: No symptom reported Musculoskeletal: No symptom reported Skin: No symptom reported Psychiatric: No symptom reported Endocrine: No symptom reported Hematologic/Lymphatic: No symptom reported Vital Signs Vital Signs Date Time Temp Pulse Resp B/P (MAP) Pulse Ox O2 Delivery O2 Flow Rate FiO2 03/31/24 12:30 98.3 86 18 128/77 (94) 95 98.3 03/31/24 08:43 Room Air* 0 21 Physical Exam General Appearance: Cooperative. Morbid obesity Pulmonary/Respiratory: Clear, bilateral breaths sounds. Cardiovascular/Chest: Irregular rate and rhythm. . Peripheral Pulses: 2+ Radial (R). 2+ Radial (L). 2+ Pedal (R). 2+ Pedal (L) Abdominal Exam: Normal bowel sounds. Ankle Exam: Negative ankle edema Lower extremities: Negative lower extremity edema Neuro/Mental Status: A/OX4, coherent. Thoughts/Psych: Normal thought pattern. Appropriate mood and affect. Good judgment and insight. Appearance: No acute distress. Skin Exam: Normal inspection. Normal color. Warm and dry. Labs/Diagnostic Data Labs Test 03/31/24 14:42 03/31/24 10:34 03/31/24 07:00 03/30/24 10:49 Range/Units D-Dimer, Quantitative 0.80 H 0.0-0.49 mg/L FEU Urine Color Yellow Yellow Urine Clarity Clear Clear Urine pH 5.5 5.0-9.0 Urine Specific [place] 1.030 1.001-1.035 Urine Protein Negative Negative Urine Ketones Negative Negative Urine Blood Negative Negative /uL Urine Nitrite Negative Negative Urine Bilirubin Negative Negative Urine Urobilinogen 3 H Negative mg/dL Urine Leukocyte Esterase Negative Negative /uL Urine RBC None seen 0 - 4 /hpf Urine Microscopic WBC 1 0-5 /HPF Urine Squamous Epithelial Cells Few <5 /hpf Urine Bacteria Few H None Seen /hpf Urine Glucose Normal Normal mg/dL Sodium Level 139 136-145 mmol/L Potassium Level 3.7 3.5-5.1 mmol/L Chloride Level 107 98-107 mmol/L Carbon Dioxide Level 26 20-31 mmol/L Anion Gap 6 5-15 Blood Urea Nitrogen 19 9-23 mg/dL Creatinine 0.85 0.550-1.02 mg/dL Glomerular Filtration Rate Calc 70 >90 mL/min BUN/Creatinine Ratio 22.4 H 10.0-20.0 Serum Glucose 88 74-106 mg/dL Hemoglobin A1c 4.8 <5.7 % A1C Calcium Level 9.5 8.7-10.4 mg/dL Magnesium Level 2.0 1.6-2.6 mg/dL Triglycerides Level 81 < 150 mg/dL Cholesterol Level 186 < 200 mg/dL LDL Cholesterol 128 H < 100 mg/dL HDL Cholesterol 51 40-59 mg/dL Thyroid Stimulating Hormone (TSH) 2.24 0.55-4.78 uIU/mL White Blood Count 4.3 L 4.4-10.8 10^3/uL Red Blood Count 4.76 4.0-5.20 10^6/uL Hemoglobin 14.5 12.2-16.2 g/dL Hematocrit 43.9 36.0-46.0 % Mean Corpuscular Volume 92.4 80.0-100.0 fL Mean Corpuscular Hemoglobin 30.5 28.0-32.0 pg Mean Corpuscular Hemoglobin Concent 33.0 32.0-36.0 g/dL Red Cell Distribution Width 13.7 11.8-14.3 % Platelet Count 233 140-450 10^3/uL Mean Platelet Volume 7.4 6.9-10.8 fL Neutrophils (%) (Auto) 51.0 37.0-80.0 % Lymphocytes (%) (Auto) 34.4 10.0-50.0 % Monocytes (%) (Auto) 8.5 0.0-12.0 % Eosinophils (%) (Auto) 4.9 0.0-7.0 % Basophils (%) (Auto) 1.2 0.0-2.0 % Neutrophils # (Auto) 2.2 1.6-8.6 10 ^3/uL Lymphocytes # (Auto) 1.5 0.4-5.4 10 ^3/uL Monocytes # (Auto) 0.4 0-1.3 10 ^3/uL Eosinophils # (Auto) 0.2 0-0.8 10 ^3/uL Basophils # (Auto) 0.1 0-0.2 10 ^3/uL Nucleated Red Blood Cells 0.1 % Troponin I High Sensitivity 7 </=34 ng/L Assessment Syncope, rule out cardiac etiology Atrial fibrillation, newly diagnosed Rule out structural heart disease Hypertension Morbid obesity Plan/Recommendation We will continue with the following plan/recommendations (Dr. West): * Transthoracic echocardiogram to evaluate cardiac function * Bilateral carotid ultrasound: Negative * Orthostatic vital signs * ?[id number] VASc score: 4 points * Initiate therapeutic Lovenox, transition to NOAC prior discharge * Avoid antiarrhythmic agent given unknown duration of AFib * Close Cardiac surveillance: Notify cardio team of any ECG changes Case discussed with . Thank you for allowing us to care for this patient. Please call with any questions or concerns. Critical care time spent: 42 minutes This medical document was created using an electronic medical record system with voice recognition software and computerized dictation system. Although this document has been carefully reviewed, there might still be some phonetic and typographical errors. Occasional wrong-word or ``sound-alike substitutions may have occurred due to the inherent limitations of voice recognition software. These areas are purely typographical due to imperfections of the software programs and do not reflect any compromise in the patient's medical care. Please read the chart carefully and recognize, using context, where these substitutions have occurred. Plan discussed with: Patient NYHA Physical activity limitations: NA Date of Service: Mar 31, 2024 Billing Provider: ASHLYN WATT Cardiology Common Codes: [id number] INP/OBS CARE (High) Cardiology Consultation Codes: [id number] CONSULT <45MIN ASHLYN WATT Mar 31, 2024 15:59
[2024-03-31 16:42] LABS: COVID19 ANTIGEN SOFIA FIA NEGATIVE (NEGATIVE)
[2024-03-31 16:43] LABS: Rapid Influenza A Negative (Negative); Rapid Influenza B Negative (Negative)
[2024-03-31] MEDS: ENOXAPARIN SOD 100 MG/1 ML SYRINGE SC SCH (21:13)
--- NOTE | 2024-03-31 23:40 | DVHINCON2 ---
Date of service: Mar 31, [address] Bliss Reason for Consultation Syncope History of Present Illness Ms. Castillo is a 78 years old right-handed female with a history of asthma, COPD, depression, obesity, she was admitted to [facility] on 03/30/2024 with a chief company of passing out, at this time, she was alert and fully oriented, she provided the following history In the morning on 03/30/2024, after washing her face, when she was walking back to her living room, she had a vitamin feeling, general weakness, a feeling that she could not move, intense lightheadedness, nausea, confusion, blurry and dark vision, unable to move her mouth, and the next memory was waking up with EMS personnel around her, confused, he denies associated chest pain, increased sweating, and she was never had similar problems previously, she denies history of stroke, seizure disorder. EMS crew reported heart rate between 70-100 Urinalysis, 03/31/2024: WBC: Urine leukocyte esterase: Negative CMP, 03/30/2024: Unremarkable BMP, 03/31/2024: Unremarkable HGB A1c, 03/31/2024: 4.8 TG/HDL/LDL/HDL, 03/31/2024: 81/186/128/51 TSH, 03/31/2024: 2.24 EKG, 03/30/2024: Atrial fibrillation Carotid Doppler, 03/31/2024: No evidence of hemodynamically significant stenosis in bilateral carotid arteries. CT head, 03/30/2024: No acute intracranial process Past Medical History COPD, asthma, depression Past Surgical History x3, cholecystectomy Family History: Patient reports no known family medical history. Family History Hypertension, heart murmur Social History She is not a tobacco smoker, she was no history of alcohol or recreational substance abuse Allergies: Coded Allergies: No Known Drug Allergy (Verified Allergy, Unknown, 05/21/17) Home Meds Reported Medications Prochlorperazine Maleate (Compazine) 10 Mg Tb, 5 MG PO Q8HPRN PRN for NAUSEA / VOMITING, #15 TAB 09/02/19 Albuterol Sulfate (VENTOLIN MDI) 90 Mcg Ih, 1 PUFF IN Q6HP PRN for SHORTNESS OF BREATH 05/21/17 Oxybutynin Chloride (Ditropan Xl) 10 Mg Tab, 10 MG PO BID, TAB 05/21/17 Fluoxetine Hcl (Fluoxetine Hcl) 20 Mg Cap, 20 MG PO DAILY for 30 Days, MG 05/21/17 Ibuprofen (Ibuprofen) 800 Mg Tab, 800 MG PO BID PRN for PAIN, MG 05/21/17 Current Medications Current Medications Medications (Trade) Dose Ordered Sig/Vidal Route PRN Reason Start Time Stop Time Status Last Admin Fluoxetine HCl (PROzac CAPSULE) 20 mg DAILY PO 03/31/24 10:00 03/31/24 09:39 Enoxaparin Sodium (Lovenox) 40 mg DAILY SC 03/31/24 10:00 03/31/24 19:09 DC 03/31/24 09:37 Acetaminophen/ Hydrocodone Bitart (Amber 5/325MG Tab) 1 tab Q8HPRN PRN PO MODERATE PAIN (4-6 PAIN SCALE) 03/31/24 05:15 03/31/24 17:42 Enoxaparin Sodium (Lovenox) 90 mg Q12HR SC 03/31/24 22:00 03/31/24 21:13 Review of Systems As above, the other systems are negative Vital Signs Vital Signs Date Time Temp Pulse Resp B/P (MAP) Pulse Ox O2 Delivery O2 Flow Rate FiO2 03/31/24 21:00 97.8 100 19 101/64 (76) 92 97.8 03/31/24 20:00 Room Air* 0 21 Physical Exam GENERAL EXAM: General: the patient is well developed and nourished. No acute distress. HEENT: Normocephalic, neck is supple, no carotid bruits. No mass. RESPIRATORY: Normal respiratory effort with symmetrical lung expansion. Lungs clear to auscultation. CARDIOVASCULAR: Regular rate and rhythm with no murmurs. S1, S2. ABDOMEN: Soft, nontender, normal bowel sound MUSCULOSKELETAL EXAM: Pain in the knees NEUROLOGICAL: MENTAL STATUS: Awake and alert. Oriented to person, place, time and general circumstances. Able to give personal history SPEECH, LANGUAGE, HIGHER CORTICAL FUNCTION: no aphasia or dysathria. CRANIAL NERVES: #2: Intact visual kunz to confrontation. The optic discs were sharp. #3,4,6: Pupils are equal, round and reactive. EOMs full and conjugate. Mild bilateral gaze evoked nystagmus. #5: Facial sensation intact in all three divisions bilaterally. Mandibular strength intact. #7: Facial muscles symmetrical and strength intact. #8: Hearing grossly normal to voice. #9,10: Uvula and soft palate rise in the midline. Swallow and voice are normal. #11: Trapezius and sternomastoid strength intact bilaterally. #12: Tongue midline. No fasciculations or atrophy. SENSATION: Sensation to touch and pinprick is normal. MOTOR: Normal tone in the upper and lower extremity. Normal muscle bulk. No fasciculations. No abnormal movements or posturing. Muscle strength of the major groups in the upper extremities is 5/5. Muscle strength of the major groups in the lower extremities is 5/5. REFLEXES: Deep tendon reflexes are symmetrical. No pathological reflexes. CEREBELLAR/COORDINATION: Finger to nose is bilaterally. GAIT/STATION: deferred. Labs/Diagnostic Data Labs Test 03/31/24 16:00 03/31/24 14:42 03/31/24 10:34 03/31/24 07:00 Range/Units Influenza Type A Antigen Negative Negative Influenza Type B Antigen Negative Negative SARS-CoV-2 Antigen (Rapid) Negative NEGATIVE D-Dimer, Quantitative 0.80 H 0.0-0.49 mg/L FEU Urine Color Yellow Yellow Urine Clarity Clear Clear Urine pH 5.5 5.0-9.0 Urine Specific [place] 1.030 1.001-1.035 Urine Protein Negative Negative Urine Ketones Negative Negative Urine Blood Negative Negative /uL Urine Nitrite Negative Negative Urine Bilirubin Negative Negative Urine Urobilinogen 3 H Negative mg/dL Urine Leukocyte Esterase Negative Negative /uL Urine RBC None seen 0 - 4 /hpf Urine Microscopic WBC 1 0-5 /HPF Urine Squamous Epithelial Cells Few <5 /hpf Urine Bacteria Few H None Seen /hpf Urine Glucose Normal Normal mg/dL Sodium Level 139 136-145 mmol/L Potassium Level 3.7 3.5-5.1 mmol/L Chloride Level 107 98-107 mmol/L Carbon Dioxide Level 26 20-31 mmol/L Anion Gap 6 5-15 Blood Urea Nitrogen 19 9-23 mg/dL Creatinine 0.85 0.550-1.02 mg/dL Glomerular Filtration Rate Calc 70 >90 mL/min BUN/Creatinine Ratio 22.4 H 10.0-20.0 Serum Glucose 88 74-106 mg/dL Hemoglobin A1c 4.8 <5.7 % A1C Calcium Level 9.5 8.7-10.4 mg/dL Magnesium Level 2.0 1.6-2.6 mg/dL Triglycerides Level 81 < 150 mg/dL Cholesterol Level 186 < 200 mg/dL LDL Cholesterol 128 H < 100 mg/dL HDL Cholesterol 51 40-59 mg/dL Thyroid Stimulating Hormone (TSH) 2.24 0.55-4.78 uIU/mL Test 03/30/24 10:49 Range/Units White Blood Count 4.3 L 4.4-10.8 10^3/uL Red Blood Count 4.76 4.0-5.20 10^6/uL Hemoglobin 14.5 12.2-16.2 g/dL Hematocrit 43.9 36.0-46.0 % Mean Corpuscular Volume 92.4 80.0-100.0 fL Mean Corpuscular Hemoglobin 30.5 28.0-32.0 pg Mean Corpuscular Hemoglobin Concent 33.0 32.0-36.0 g/dL Red Cell Distribution Width 13.7 11.8-14.3 % Platelet Count 233 140-450 10^3/uL Mean Platelet Volume 7.4 6.9-10.8 fL Neutrophils (%) (Auto) 51.0 37.0-80.0 % Lymphocytes (%) (Auto) 34.4 10.0-50.0 % Monocytes (%) (Auto) 8.5 0.0-12.0 % Eosinophils (%) (Auto) 4.9 0.0-7.0 % Basophils (%) (Auto) 1.2 0.0-2.0 % Neutrophils # (Auto) 2.2 1.6-8.6 10 ^3/uL Lymphocytes # (Auto) 1.5 0.4-5.4 10 ^3/uL Monocytes # (Auto) 0.4 0-1.3 10 ^3/uL Eosinophils # (Auto) 0.2 0-0.8 10 ^3/uL Basophils # (Auto) 0.1 0-0.2 10 ^3/uL Nucleated Red Blood Cells 0.1 % Troponin I High Sensitivity 7 </=34 ng/L Assessment Passing out with prolonged postictal confusion ? Syncope secondary to arrhythmia ? Stroke ? Seizure New onset atrial fibrillation She does not drive Plan/Recommendation Monitoring Supportive treatment Telemetry UDS EEG MR brain scan Lovenox 90 mg subQ q.12 hours Restoril 15 mg HS p.r.n. for insomnia Current pain management Syncope precautions discussed Good hydration/avoid dehydration DVT prophylax Cardiology on case More recommendation per clinical course Prognosis: Poor This medical document was created using an electronic medical record system with [employer] dictation system. Although this document has been carefully reviewed, there may still be some phonetic and typographical errors. These areas are purely typographical due to imperfections of the software programs, and do not reflect any compromise in the patient's medical care. Plan discussed with: Patient, Other FELICIA THOMPSON MD Mar 31, 2024 23:40
[2024-04-01] VITALS (9 sets, daily range): BP systolic 105–136; BP diastolic 56–88; PULSE 61–99; RESP 14–19; TEMP 97.6–98.3; O2SAT 90–96
[2024-04-01] MEDS ORDERED: LORazepam 2MG/ML-1ML VIAL IV PRN (00:30)
[2024-04-01] MEDS: ONDANSETRON HCL 4 MG/2 ML VIAL IV PRN (03:04)
[2024-04-01 08:42] LABS: Anion Gap 7 (5-15); Carbon Dioxide 26 mmol/L (20-31); Chloride 105 mmol/L (98-107); Sodium 138 mmol/L (136-145)
[2024-04-01 08:46] LABS: Basophils # (auto) 0 10 ^3/uL (0-0.2); Basophils % (auto) 0.9 % (0.0-2.0); Eosinophils # (auto) 0.2 10 ^3/uL (0-0.8); Eosinophils % (auto) 5.8 % (0.0-7.0); Hematocrit 40.5 % (36.0-46.0); Hemoglobin 13.5 g/dL (12.2-16.2); Lymphocytes # (auto) 1.3 10 ^3/uL (0.4-5.4); Lymphocytes % (auto) 29.4 % (10.0-50.0); Mean Corpuscular Hemoglobin 30.7 pg (28.0-32.0); Mean Corpuscular Hgb Conc. 33.3 g/dL (32.0-36.0); Mean Corpuscular Volume 92.2 fL (80.0-100.0); Monocytes # (auto) 0.5 10 ^3/uL (0-1.3); Monocytes % (auto) 10.4 % (0.0-12.0); Neutrophils # (auto) 2.3 10 ^3/uL (1.6-8.6); Neutrophils % (auto) 53.5 % (37.0-80.0); Nucleated Red Blood Cells % 0.1 %; Platelet Count (auto) 200 10^3/uL (140-450); Red Cell Distribution Width 13.5 % (11.8-14.3); White Blood Cell 4.3 10^3/uL (4.4-10.8)
[2024-04-01 08:48] LABS: BUN/Creatinine Ratio 20.5 (10.0-20.0); Blood Urea Nitrogen 16 mg/dL (9-23); Glucose 81 mg/dL (74-106)
[2024-04-01 09:35] LABS: Calcium 9.5 mg/dL (8.7-10.4)
--- NOTE | 2024-04-01 09:48 | DVH ---
EXAMINATION: MRI BRAIN HEAD WO CONTRAST INDICATION: aloc COMPARISON: CT scan of the head dated 03/30/2024 TECHNIQUE: Multiplanar, multisequence magnetic resonance imaging of the brain was performed without the use of i ntravenous contrast. FINDINGS: No evidence of acute or remote infarct. No intracranial hemorrhage. No mass effect. There is moderate periventricular/deep white matter T2/FLAIR hyperintensity is nonspecific, but most commonly associated with chronic microvascular disease. The ventricles and sulci are normal in size for age. Clear basal cisterns. Flow voids in the major intracranial vessels are maintained. No abnormality of the orbits. Paranasal sinuses and mastoid air cells are clear. No abnormality of the visualized osseous structures and extracranial soft tissues. IMPRESSION: 1. No acute infarct, intracranial hemorrhage, mass effect, or hydrocephalus. 2. Moderate periventricular/deep white matter T2/FLAIR hyperintensity is nonspecific, but most common ly associated with chronic microvascular disease.
--- NOTE | 2024-04-01 11:08 | DVHPN2 ---
Reviewed: Care Plan, H&P, Labs, Medications, Previous Orders, Radiology Changes from previous H/P or p: No Changes Objective Vitals Vital Signs Date Time Temp Pulse Resp B/P (MAP) Pulse Ox O2 Delivery O2 Flow Rate FiO2 04/01/24 09:00 98.2 93 17 111/56 (74) 92 98.2 04/01/24 07:52 Room Air* 0 21 Intake/Output Intake and Output 04/01/24 07:00 Intake Total 736 ml Balance 736 ml Intake Oral 736 ml # Voids 9 Medications Current Medications Medications Dose Ordered Sig/Vidal Route Start Time Stop Time Status Last Admin Dose Admin Albuterol 2.5 mg Q6HPRN PRN NEB 03/30/24 19:15 Fluoxetine HCl 20 mg DAILY PO 03/31/24 10:00 04/01/24 09:57 20 MG Ondansetron HCl 4 mg Q4HP PRN IV 03/30/24 19:15 04/01/24 03:04 4 MG Acetaminophen 650 mg Q6HP PRN PO 03/30/24 19:15 03/31/24 13:06 650 MG Nitroglycerin 0.4 mg Q5MINP PRN SL 03/30/24 19:15 Morphine Sulfate 2 mg Q30M PRN IV 03/30/24 19:15 Acetaminophen/ Hydrocodone Bitart 1 tab Q8HPRN PRN PO 03/31/24 05:15 04/01/24 02:54 1 TAB Enoxaparin Sodium 90 mg Q12HR SC 03/31/24 22:00 04/01/24 09:58 90 MG Lorazepam 1 mg ONCE PRN IV 04/01/24 00:30 Temazepam 15 mg HS PRN PO 04/01/24 00:30 Laboratory Results Laboratory Tests 04/01/24 07:24 Chemistry Test 04/01/24 07:24 Calcium Level 9.5 mg/dL (8.7-10.4) Coagulation Test 03/31/24 14:42 D-Dimer, Quantitative 0.80 mg/L FEU (0.0-0.49) H Urinalysis Test 03/31/24 10:34 Urine Color Yellow (Yellow) Urine Clarity Clear (Clear) Urine pH 5.5 (5.0-9.0) Urine Specific [place] 1.030 (1.001-1.035) Urine Protein Negative (Negative) Urine Ketones Negative (Negative) Urine Blood Negative /uL (Negative) Urine Nitrite Negative (Negative) Urine Bilirubin Negative (Negative) Urine Urobilinogen 3 mg/dL (Negative) H Urine Leukocyte Esterase Negative /uL (Negative) Urine RBC None seen /hpf (0 - 4) Urine Microscopic WBC 1 /HPF (0-5) Urine Squamous Epithelial Cells Few /hpf (<5) Urine Bacteria Few /hpf (None Seen) H Urine Glucose Normal mg/dL (Normal) Labs and/or images reviewed: Labs reviewed by me, Image(s) reviewed by me Assessment/Plan Assessment/Plan Syncope unknown etiology ? secondary to cardiac arrhythmia or new onset seizures: CBC with normal limits complete metabolic panel with a normal limits CT head negative, chest x-ray negative carotid ultrasound negative, EEG pending echocardiogram pending, cardiology consult appreciated neurology consult appreciated New onset AFib: Lovenox 1 milligram/kilos subQ b.i.d. Will check Alison test COVID test D-dimer COPD Depression Hypotension Morbid obesity Asthma Rule out seizures Leonid at the bedside Patient does not want any information to be given to her family members except her Echocardiogram and EEG pending Plan discussed with: Patient My Orders Orders - GRETEL PIERCE MD Procedure Category Date Status Time Rapid Influenza A&B LAB 03/31/24 Logged 13:14 * Cardiology Consult CONS 03/31/24 Transmitted 13:14 * Neurology Consult CONS 03/31/24 Transmitted 13:22 Date of Service: Apr 01, 2024 Billing Provider: GRETEL PIERCE MD Common Visit Codes: [id number] INP/OBS CARE(HIGH) GRETEL PIERCE MD Apr 01, 2024 11:08
--- NOTE | 2024-04-01 13:22 | DVHPN2 ---
Consult Progress Note Subjective Other Systems: Patient denies any cardiac symptoms at time of assessment. 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 Objective vital signs Vital Sign Date Time Temp Pulse Resp B/P (MAP) Pulse Ox O2 Delivery O2 Flow Rate FiO2 04/01/24 09:00 98.2 93 17 111/56 (74) 92 98.2 04/01/24 07:52 Room Air* 0 21 Total Intake and Output 03/31/24 03/31/24 04/01/24 15:00 23:00 07:00 Intake Total 236 ml 500 ml Balance 236 ml 500 ml medications Current Medications Medications Dose Ordered Sig/Vidal Route Start Time Stop Time Status Last Admin Dose Admin Albuterol 2.5 mg Q6HPRN PRN NEB 03/30/24 19:15 Fluoxetine HCl 20 mg DAILY PO 03/31/24 10:00 04/01/24 09:57 20 MG Ondansetron HCl 4 mg Q4HP PRN IV 03/30/24 19:15 04/01/24 03:04 4 MG Acetaminophen 650 mg Q6HP PRN PO 03/30/24 19:15 03/31/24 13:06 650 MG Nitroglycerin 0.4 mg Q5MINP PRN SL 03/30/24 19:15 Morphine Sulfate 2 mg Q30M PRN IV 03/30/24 19:15 Acetaminophen/ Hydrocodone Bitart 1 tab Q8HPRN PRN PO 03/31/24 05:15 04/01/24 13:04 1 TAB Enoxaparin Sodium 90 mg Q12HR SC 03/31/24 22:00 04/01/24 09:58 90 MG Lorazepam 1 mg ONCE PRN IV 04/01/24 00:30 Temazepam 15 mg HS PRN PO 04/01/24 00:30 Examination: GENERAL:Normal, LUNGS:Normal, CVS:Normal, NEURO:Normal laboratory and microbiology Laboratory Tests 04/01/24 07:24 Test 04/01/24 07:24 Range/Units Serum Glucose 81 74-106 mg/dL Problem List/Assessment/Plan Problem List/Assessment/Plan Syncope, rule out cardiac etiology Atrial fibrillation, newly diagnosed Rule out structural heart disease Hypertension Morbid obesity Plan/Recommendation (Dr. Stout): * Transthoracic echocardiogram to evaluate cardiac function * Bilateral carotid ultrasound: Negative * Orthostatic vital signs * ?[id number] VASc score: 4 points * Initiate therapeutic Lovenox, transition to NOAC prior discharge * Avoid antiarrhythmic agent given unknown duration of AFib * Close Cardiac surveillance: Notify cardio team of any ECG changes * Neurology consult and recommendations Patient seen and examined at bedside with . Thank you for allowing us to care for this patient. Please call with any questions or concerns. This medical document was created using an electronic medical record system with voice recognition software and computerized dictation system. Although this document has been carefully reviewed, there might still be some phonetic and typographical errors. Occasional wrong-word or ``sound-alike substitutions may have occurred due to the inherent limitations of voice recognition software. These areas are purely typographical due to imperfections of the software programs and do not reflect any compromise in the patient's medical care. Please read the chart carefully and recognize, using context, where these substitutions have occurred. Plan discussed with: Patient Date of Service: Apr 01, 2024 Billing Provider: ASHLYN WATT Common Visit Codes: [id number] INP/OBS CARE(HIGH) ASHLYN WATT Apr 01, 2024 13:22
--- NOTE | 2024-04-01 18:01 | DVHSR ---
APPROVED REPORT EXAM: Two-dimensional and M-mode echocardiogram with Doppler and color Doppler. Blood Pressure: 111/56 mmHg INDICATION Syncope RISK FACTORS Height: 64, Weight: 228 DIMENSIONS LVDd (3.8-5.7cm)LA (2D)4.8 (1.9-4.0cm)Aortic Root (2.0-3.7cm) EF (%) 57.0 (55-70%)Rt. Atrium4.1 (1.9-4.0cm)Asc. Aorta cm Mitral Valve MitralMitral Stenosis E wave1.22m/sMV Mean GR.mmHg A wavem/sMV Peak GR.76mmHg E/A ratio0.02D MVAcm2 DECEL Tim[employer] 1/2 [id number] IVRTmsDop MVA2.93cm2 Aortic Valve Aortic ValveAortic Stenosis V10.60m/Mindi Mean GR.3mmHg V21.25m/Mindi Peak GR.6mmHg AI P 1/2 Sfyd290.95ms Tricuspid Valve TR Velocity2.86m/s [id number] Other Information Technically limited study due to body habitus. Patient laying flat on her back. Patient was unable t o turn on her side. Conclusion Technically good study. Off axis views. Difficult acoustic windows. Left atrial enlargement. Sigmoid septum. Right atrial and right ventricular enlargement. Moderate mitral annular calcification. Left ventricular function is moderately diminished. EF of proximally 40% with mild global hypokines is. Normal right ventricular function. Doppler reveals moderate tricuspid insufficiency. Mild mitral regurgitation. No pericardial effusion masses or vegetations.
[2024-04-01] MEDS: TEMAZEPAM 15 MG CAP PO PRN (21:09)
--- NOTE | 2024-04-01 22:44 | DVHPN2 ---
Progress Note - Dictate Date Seen: Apr 01, 2024 Medical Necessity Reason Pt with a Central, PICC or Fol: No Subjective Ms. Castillo is a 78 years old right-handed female with a history of asthma, COPD, depression, obesity, she was admitted to [facility] on 03/30/2024 with a chief company of passing out I have seen and examined the patient, I discussed with her nurse, she was doing fine, alert and fully oriented, she reports difficulty with falling asleep and restoring 15 mg does not work, otherwise no new complaints Urinalysis, 03/31/2024: WBC: Urine leukocyte esterase: Negative CMP, 03/30/2024: Unremarkable BMP, 03/31/2024: Unremarkable HGB A1c, 03/31/2024: 4.8 TG/HDL/LDL/HDL, 03/31/2024: 81/186/128/51 TSH, 03/31/2024: 2.24 EKG, 03/30/2024: Atrial fibrillation EEG, 04/01/2024: Normal Echocardiogram, 04/01/2024: Technically good study. Off axis views. Difficult acoustic windows. Left atrial enlargement. Sigmoid septum. Right atrial and right ventricular enlargement. Moderate mitral annular calcification. Left ventricular function is moderately diminished. EF of proximally 40% with mild global hypokinesis. Normal right ventricular function. Doppler reveals moderate tricuspid insufficiency. Mild mitral regurgitation. No pericardial effusion masses or vegetations. Carotid Doppler, 03/31/2024: No evidence of hemodynamically significant stenosis in bilateral carotid arteries. CT head, 03/30/2024: No acute intracranial process MRI head, 04/01/2024: 1. No acute infarct, intracranial hemorrhage, mass effect, or hydrocephalus. 2. Moderate periventricular/deep white matter T2/FLAIR hyperintensity is nonspecific, but most commonly associated with chronic microvascular disease. vital signs Vital Sign Date Time Temp Pulse Resp B/P (MAP) Pulse Ox O2 Delivery O2 Flow Rate FiO2 04/01/24 21:00 98.2 90 14 118/70 (86) 95 98.2 04/01/24 20:00 Room Air 0.0 04/01/24 20:00 21 Total Intake and Output 03/31/24 03/31/24 04/01/24 15:00 23:00 07:00 Intake Total 236 ml 500 ml Balance 236 ml 500 ml medications Current Medications Medications Dose Ordered Sig/Vidal Route Start Time Stop Time Status Last Admin Dose Admin Albuterol 2.5 mg Q6HPRN PRN NEB 03/30/24 19:15 Fluoxetine HCl 20 mg DAILY PO 03/31/24 10:00 04/01/24 09:57 20 MG Ondansetron HCl 4 mg Q4HP PRN IV 03/30/24 19:15 04/01/24 03:04 4 MG Acetaminophen 650 mg Q6HP PRN PO 03/30/24 19:15 04/01/24 20:01 650 MG Nitroglycerin 0.4 mg Q5MINP PRN SL 03/30/24 19:15 Morphine Sulfate 2 mg Q30M PRN IV 03/30/24 19:15 Acetaminophen/ Hydrocodone Bitart 1 tab Q8HPRN PRN PO 03/31/24 05:15 04/01/24 13:04 1 TAB Enoxaparin Sodium 90 mg Q12HR SC 03/31/24 22:00 04/01/24 21:08 90 MG Lorazepam 1 mg ONCE PRN IV 04/01/24 00:30 Temazepam 15 mg HS PRN PO 04/01/24 00:30 04/01/24 21:09 15 MG objective General: the patient is well developed and nourished. No acute distress. MUSCULOSKELETAL EXAM: Pain in the knees, worse in the left one MENTAL STATUS: Awake and alert. Oriented to person, place, time and general circumstances. Able to give personal history SPEECH, LANGUAGE, HIGHER CORTICAL FUNCTION: no aphasia or dysathria. CRANIAL NERVES: Pupils are equal, round and reactive. EOMs full and conjugate. Mild bilateral gaze evoked nystagmus. Facial sensation intact in all three divisions bilaterally. Mandibular strength intact. Facial muscles symmetrical and strength intact. SENSATION: Sensation to touch and pinprick is normal. MOTOR: Normal tone in the upper and lower extremity. Normal muscle bulk. No fasciculations. No abnormal movements or posturing. Muscle strength of the major groups in the extremities is 5/5. REFLEXES: Deep tendon reflexes are symmetrical. No pathological reflexes. CEREBELLAR/COORDINATION: Finger to nose is bilaterally. GAIT/STATION: deferred laboratory and microbiology Laboratory Tests 04/01/24 07:24 Test 04/01/24 07:24 Range/Units Serum Glucose 81 74-106 mg/dL Problem List Passing out with prolonged postictal confusion ? Syncope secondary to arrhythmia ? Stroke ? Seizure New onset atrial fibrillation She does not drive Assessment/Plan Monitoring Supportive treatment Telemetry UDS Lovenox 90 mg subQ q.12 hours Restoril 30 mg HS p.r.n. for insomnia Current pain management Syncope precautions discussed Good hydration/avoid dehydration DVT prophylax Cardiology on case More recommendation per clinical course This medical document was created using an electronic medical record system with [employer] dictation system. Although this document has been carefully reviewed, there may still be some phonetic and typographical errors. These areas are purely typographical due to imperfections of the software programs, and do not reflect any compromise in the patient's medical care. Prognosis poor Plan discussed with: Patient, Other Total Time (mins): 35 FELICIA THOMPSON MD Apr 01, 2024 22:44
--- NOTE | 2024-04-01 22:51 | DVHEEG2 ---
Neurology EEG Procedural Note Procedural Note EXAM DATE: 04/01/2024 REFERRING DOCTOR: Dr. Thompson TECHNIQUE: Eighteen channels of EEG, 2 channels of EOG, and 1 channel of EKG were recorded using the International 10/20 system. CLINICAL DATA: The patient was referred for an EEG evaluation for the evidence of seizure disorder. MEDICATIONS: See the chart BACKGROUND ACTIVITY: While the patient was awake, the background activity consisted of well regulated 10 Hz rhythmic waveforms, symmetrically distributed over both posterior quadrants and was reactive to eye opening. ACTIVATION: Hyperventilation: Not done Photic Stimulation: Not done Sleep: Not seen IMPRESSION: This is a normal EEG. No focal, lateralized, or epileptiform features are noted. If clinically indicated to rule out a seizure disorder, recommend repeat EEG with sleep deprivation. The EKG channel showed an irregular heart rate of 78/min[place] [address] FELICIA THOMPSON MD Apr 01, 2024 22:51
--- NOTE | 2024-04-01 23:50 | DVHPN2 ---
Consult Progress Note Subjective Other Systems: Patient was seen and evaluated in follow up. Patient denies any cardiac symptoms. 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 MRI brain shows no acute infarct, intracranial hemorrhage, mass effect, or hydrocephalus. Moderate periventricular/deep white matter T2/FLAIR hyperintensity is nonspecific, but most commonly associated with chronic microvascular disease. Objective vital signs Vital Sign Date Time Temp Pulse Resp B/P (MAP) Pulse Ox O2 Delivery O2 Flow Rate FiO2 04/01/24 21:00 98.2 90 14 118/70 (86) 95 98.2 04/01/24 20:00 Room Air 0.0 04/01/24 20:00 21 Total Intake and Output 03/31/24 03/31/24 04/01/24 15:00 23:00 07:00 Intake Total 236 ml 500 ml Balance 236 ml 500 ml medications Current Medications Medications Dose Ordered Sig/Vidal Route Start Time Stop Time Status Last Admin Dose Admin Albuterol 2.5 mg Q6HPRN PRN NEB 03/30/24 19:15 Fluoxetine HCl 20 mg DAILY PO 03/31/24 10:00 04/01/24 09:57 20 MG Ondansetron HCl 4 mg Q4HP PRN IV 03/30/24 19:15 04/01/24 03:04 4 MG Acetaminophen 650 mg Q6HP PRN PO 03/30/24 19:15 04/01/24 20:01 650 MG Nitroglycerin 0.4 mg Q5MINP PRN SL 03/30/24 19:15 Morphine Sulfate 2 mg Q30M PRN IV 03/30/24 19:15 Acetaminophen/ Hydrocodone Bitart 1 tab Q8HPRN PRN PO 03/31/24 05:15 04/01/24 13:04 1 TAB Enoxaparin Sodium 90 mg Q12HR SC 03/31/24 22:00 04/01/24 21:08 90 MG Lorazepam 1 mg ONCE PRN IV 04/01/24 00:30 Temazepam 15 mg HS PRN PO 04/01/24 00:30 04/01/24 21:09 15 MG Examination: GENERAL:Normal, HEENT:Normal, NECK:Normal, LUNGS:Normal, CVS:Normal, ABDOMEN:Normal, MSK:Normal, SKIN:Normal, NEURO:Normal laboratory and microbiology Laboratory Tests 04/01/24 07:24 Test 04/01/24 07:24 Range/Units Serum Glucose 81 74-106 mg/dL Problem List/Assessment/Plan Problem List/Assessment/Plan Syncope, rule out cardiac etiology. Atrial fibrillation, newly diagnosed. Rule out structural heart disease. Hypertension. Morbid obesity. Plan/Recommendation Continued all current supportive medical care. Patient has been seen by Bonita Parkinson NP on my behalf, her and I discussed the plan with the patient. Telemetry reviewed. Transthoracic echocardiogram to evaluate cardiac function. Bilateral carotid ultrasound: Negative. Orthostatic vital signs. ?[id number] VASc score: 4 points. Initiate therapeutic Lovenox, transition to NOAC prior discharge. Avoid antiarrhythmic agent given unknown duration of AFib. Close Cardiac surveillance: Notify cardio team of any ECG changes. Neurology consult and recommendations. Additional plan as per the hospital course. Plan discussed with: Patient Date of Service: Apr 01, 2024 Billing Provider: BRITTNEY MORRIS MD Cardiology Common Codes: [id number] HOSP CARE(High BRITTNEY MORRIS MD Apr 01, 2024 22:40
[2024-04-02] VITALS (9 sets, daily range): BP systolic 111–159; BP diastolic 45–81; PULSE 60–129; RESP 13–18; TEMP 98.1–98.9; O2SAT 92–96
[2024-04-02] MEDS: TEMAZEPAM 15 MG CAP PO ONE (00:10)
[2024-04-02] MEDS: TEMAZEPAM 15 MG CAP PO STA (00:30)
--- NOTE | 2024-04-02 11:28 | DVHPN2 ---
Reviewed: Care Plan, H&P, Labs, Medications, Previous Orders, Radiology Changes from previous H/P or p: No Changes Objective Vitals Vital Signs Date Time Temp Pulse Resp B/P (MAP) Pulse Ox O2 Delivery O2 Flow Rate FiO2 04/02/24 10:40 93 Room Air* 0 21 04/02/24 09:00 98.4 60 18 111/81 (91) 98.4 Intake/Output Intake and Output 04/02/24 07:00 Intake Total 1050 ml Output Total 0 ml Balance 1050 ml Intake Oral 1050 ml Output Stool Total 0 ml # Voids 2 Medications Current Medications Medications Dose Ordered Sig/Vidal Route Start Time Stop Time Status Last Admin Dose Admin Albuterol 2.5 mg Q6HPRN PRN NEB 03/30/24 19:15 Fluoxetine HCl 20 mg DAILY PO 03/31/24 10:00 04/02/24 10:08 20 MG Ondansetron HCl 4 mg Q4HP PRN IV 03/30/24 19:15 04/01/24 03:04 4 MG Acetaminophen 650 mg Q6HP PRN PO 03/30/24 19:15 04/01/24 20:01 650 MG Nitroglycerin 0.4 mg Q5MINP PRN SL 03/30/24 19:15 Morphine Sulfate 2 mg Q30M PRN IV 03/30/24 19:15 Acetaminophen/ Hydrocodone Bitart 1 tab Q8HPRN PRN PO 03/31/24 05:15 04/02/24 10:09 1 TAB Enoxaparin Sodium 90 mg Q12HR SC 03/31/24 22:00 04/02/24 10:10 90 MG Lorazepam 1 mg ONCE PRN IV 04/01/24 00:30 Temazepam 30 mg HS PRN PO 04/02/24 22:00 Laboratory Results Laboratory Tests 04/01/24 07:24 Urinalysis Test 03/31/24 10:34 Urine Color Yellow (Yellow) Urine Clarity Clear (Clear) Urine pH 5.5 (5.0-9.0) Urine Specific [place] 1.030 (1.001-1.035) Urine Protein Negative (Negative) Urine Ketones Negative (Negative) Urine Blood Negative /uL (Negative) Urine Nitrite Negative (Negative) Urine Bilirubin Negative (Negative) Urine Urobilinogen 3 mg/dL (Negative) H Urine Leukocyte Esterase Negative /uL (Negative) Urine RBC None seen /hpf (0 - 4) Urine Microscopic WBC 1 /HPF (0-5) Urine Squamous Epithelial Cells Few /hpf (<5) Urine Bacteria Few /hpf (None Seen) H Urine Glucose Normal mg/dL (Normal) Labs and/or images reviewed: Labs reviewed by me, Image(s) reviewed by me Assessment/Plan Assessment/Plan Syncope unknown etiology ? secondary to cardiac arrhythmia or new onset seizures: CBC with normal limits complete metabolic panel with a normal limits CT head negative, chest x-ray negative carotid ultrasound negative, EEG negative, echocardiogram 40 percent ejection fraction, cardiology consult by Dr. Stout appreciated, neurology consult appreciated New onset AFib: Lovenox 1 milligram/kilos subQ b.i.d. Will check Alison test COVID test D-dimer COPD Depression Hypotension Morbid obesity Asthma Rule out seizures Leonid at the bedside Patient does not want any information to be given to her family members except her Will DC Thursday on Eliquis Plan discussed with: Patient My Orders Orders - GRETEL PIERCE MD Procedure Category Date Status Time Echo 2d Mode Cardiac US 04/01/24 Resulted DOP Date of Service: Apr 02, 2024 Billing Provider: GRETEL PIERCE MD Common Visit Codes: [id number] INP/OBS CARE(HIGH) GRETEL PIERCE MD Apr 02, 2024 11:28
--- NOTE | 2024-04-02 23:18 | DVHPN2 ---
Progress Note - Dictate Date Seen: Apr 02, 2024 Medical Necessity Reason Pt with a Central, PICC or Fol: No Subjective Patient was seen and evaluated in follow up. Patient is complaining of generalized pain. Echocardiogram shows an EF of proximally 40% with mild global hypokinesis. Normal right ventricular function. Doppler reveals moderate tricuspid insufficiency. Mild mitral regurgitation. No pericardial effusion masses or vegetations. Telemetry reviewed. vital signs Vital Sign Date Time Temp Pulse Resp B/P (MAP) Pulse Ox O2 Delivery O2 Flow Rate FiO2 04/02/24 20:00 Room Air* 0 21 04/02/24 19:12 92 04/02/24 16:53 98.7 129 18 129/70 (89) 98.7 Total Intake and Output 04/01/24 04/01/24 04/02/24 15:00 23:00 07:00 Intake Total 800 ml 250 ml Output Total 0 ml Balance 800 ml 250 ml medications Current Medications Medications Dose Ordered Sig/Vidal Route Start Time Stop Time Status Last Admin Dose Admin Albuterol 2.5 mg Q6HPRN PRN NEB 03/30/24 19:15 Fluoxetine HCl 20 mg DAILY PO 03/31/24 10:00 04/02/24 10:08 20 MG Ondansetron HCl 4 mg Q4HP PRN IV 03/30/24 19:15 04/01/24 03:04 4 MG Acetaminophen 650 mg Q6HP PRN PO 03/30/24 19:15 04/01/24 20:01 650 MG Nitroglycerin 0.4 mg Q5MINP PRN SL 03/30/24 19:15 Morphine Sulfate 2 mg Q30M PRN IV 03/30/24 19:15 Acetaminophen/ Hydrocodone Bitart 1 tab Q8HPRN PRN PO 03/31/24 05:15 04/02/24 21:12 1 TAB Enoxaparin Sodium 90 mg Q12HR SC 03/31/24 22:00 04/02/24 21:13 90 MG Lorazepam 1 mg ONCE PRN IV 04/01/24 00:30 Temazepam 30 mg HS PRN PO 04/02/24 22:00 objective GENERAL: Awake, alert, oriented. LUNGS: Clear. CARDIOVASCULAR: Heart sounds are good. ABDOMEN: Soft. laboratory and microbiology Laboratory Tests 04/01/24 07:24 Test 04/01/24 07:24 Range/Units Serum Glucose 81 74-106 mg/dL Problem List Syncope, rule out cardiac etiology. Atrial fibrillation, newly diagnosed. Rule out structural heart disease. Hypertension. Morbid obesity. Assessment/Plan Continued all current supportive medical care. DVT prophylactics. Morphine and [place] for pain management. Additional plan as per the hospital course. Plan discussed with: Patient BRITTNEY MORRIS MD Apr 02, 2024 22:35
[2024-04-03] VITALS (11 sets, daily range): BP systolic 100–152; BP diastolic 40–76; PULSE 82–108; RESP 18–19; TEMP 97.8–98.6; O2SAT 74–97
--- NOTE | 2024-04-03 13:18 | DVHPN2 ---
Reviewed: Care Plan, H&P, Labs, Medications, Previous Orders, Radiology Changes from previous H/P or p: No Changes Objective Vitals Vital Signs Date Time Temp Pulse Resp B/P (MAP) Pulse Ox O2 Delivery O2 Flow Rate FiO2 04/03/24 09:00 97.8 97 18 123/67 (85) 94 97.8 04/03/24 08:00 Room Air* 0 21 Intake/Output Intake and Output 04/03/24 07:00 Intake Total 1300 ml Output Total 600 ml Balance 700 ml Intake Oral 1300 ml Output Urine Total 600 ml # Voids 1 Medications Current Medications Medications Dose Ordered Sig/Vidal Route Start Time Stop Time Status Last Admin Dose Admin Albuterol 2.5 mg Q6HPRN PRN NEB 03/30/24 19:15 Fluoxetine HCl 20 mg DAILY PO 03/31/24 10:00 04/03/24 09:04 20 MG Ondansetron HCl 4 mg Q4HP PRN IV 03/30/24 19:15 04/01/24 03:04 4 MG Acetaminophen 650 mg Q6HP PRN PO 03/30/24 19:15 04/03/24 09:04 650 MG Nitroglycerin 0.4 mg Q5MINP PRN SL 03/30/24 19:15 Morphine Sulfate 2 mg Q30M PRN IV 03/30/24 19:15 Acetaminophen/ Hydrocodone Bitart 1 tab Q8HPRN PRN PO 03/31/24 05:15 04/03/24 06:05 1 TAB Enoxaparin Sodium 90 mg Q12HR SC 03/31/24 22:00 04/03/24 09:05 90 MG Lorazepam 1 mg ONCE PRN IV 04/01/24 00:30 Temazepam 30 mg HS PRN PO 04/02/24 22:00 Laboratory Results Laboratory Tests 04/01/24 07:24 Urinalysis Test 03/31/24 10:34 Urine Color Yellow (Yellow) Urine Clarity Clear (Clear) Urine pH 5.5 (5.0-9.0) Urine Specific [place] 1.030 (1.001-1.035) Urine Protein Negative (Negative) Urine Ketones Negative (Negative) Urine Blood Negative /uL (Negative) Urine Nitrite Negative (Negative) Urine Bilirubin Negative (Negative) Urine Urobilinogen 3 mg/dL (Negative) H Urine Leukocyte Esterase Negative /uL (Negative) Urine RBC None seen /hpf (0 - 4) Urine Microscopic WBC 1 /HPF (0-5) Urine Squamous Epithelial Cells Few /hpf (<5) Urine Bacteria Few /hpf (None Seen) H Urine Glucose Normal mg/dL (Normal) Labs and/or images reviewed: Labs reviewed by me, Image(s) reviewed by me Assessment/Plan Assessment/Plan Syncope unknown etiology ? secondary to cardiac arrhythmia or new onset seizures: CBC with normal limits complete metabolic panel with normal limits CT head negative, chest x-ray negative carotid ultrasound negative, EEG negative, echocardiogram 40 percent ejection fraction, cardiology consult by Dr. Stout appreciated, neurology consult appreciated New onset AFib: Lovenox 1 milligram/kilos subQ b.i.d. Alison test negative Flu test negative COPD Depression Hypotension Morbid obesity Asthma Seizures ruled out , EEG negative Leonid at the bedside Patient does not want any information to be given to her family members except her Will DC Thursday on Eliquis Plan discussed with: Patient Date of Service: Apr 03, 2024 Billing Provider: GRETEL PIERCE MD Common Visit Codes: [id number] INP/OBS CARE(HIGH) GRETEL PIERCE MD Apr 03, 2024 13:16
--- NOTE | 2024-04-03 20:59 | DVHPN2 ---
Progress Note - Dictate Date Seen: Apr 03, 2024 Medical Necessity Reason Pt with a Central, PICC or Fol: No Subjective Ms. Castillo is a 78 years old right-handed female with a history of asthma, COPD, depression, obesity, she was admitted to [facility] on 03/30/2024 with a chief company of passing out I have seen and examined the patient, I discussed with her nurse, she is doing fine, alert and fully oriented, she reports difficulty with falling asleep, otherwise no new complaints Urinalysis, 03/31/2024: WBC: Urine leukocyte esterase: Negative CMP, 03/30/2024: Unremarkable BMP, 03/31/2024: Unremarkable HGB A1c, 03/31/2024: 4.8 TG/HDL/LDL/HDL, 03/31/2024: 81/186/128/51 TSH, 03/31/2024: 2.24 EKG, 03/30/2024: Atrial fibrillation EEG, 04/01/2024: Normal Echocardiogram, 04/01/2024: Technically good study. Off axis views. Difficult acoustic windows. Left atrial enlargement. Sigmoid septum. Right atrial and right ventricular enlargement. Moderate mitral annular calcification. Left ventricular function is moderately diminished. EF of proximally 40% with mild global hypokinesis. Normal right ventricular function. Doppler reveals moderate tricuspid insufficiency. Mild mitral regurgitation. No pericardial effusion masses or vegetations. Carotid Doppler, 03/31/2024: No evidence of hemodynamically significant stenosis in bilateral carotid arteries. CT head, 03/30/2024: No acute intracranial process MRI head, 04/01/2024: 1. No acute infarct, intracranial hemorrhage, mass effect, or hydrocephalus. 2. Moderate periventricular/deep white matter T2/FLAIR hyperintensity is nonspecific, but most commonly associated with chronic microvascular disease. vital signs Vital Sign Date Time Temp Pulse Resp B/P (MAP) Pulse Ox O2 Delivery O2 Flow Rate FiO2 04/03/24 19:15 74 Room Air* 0 21 04/03/24 17:00 97.9 82 18 111/45 (67) 97.9 Total Intake and Output 04/02/24 04/02/24 04/03/24 15:00 23:00 07:00 Intake Total 500 ml 800 ml Output Total 600 ml Balance -100 ml 800 ml medications Current Medications Medications Dose Ordered Sig/Vidal Route Start Time Stop Time Status Last Admin Dose Admin Albuterol 2.5 mg Q6HPRN PRN NEB 03/30/24 19:15 Fluoxetine HCl 20 mg DAILY PO 03/31/24 10:00 04/03/24 09:04 20 MG Ondansetron HCl 4 mg Q4HP PRN IV 03/30/24 19:15 04/01/24 03:04 4 MG Acetaminophen 650 mg Q6HP PRN PO 03/30/24 19:15 04/03/24 09:04 650 MG Nitroglycerin 0.4 mg Q5MINP PRN SL 03/30/24 19:15 Morphine Sulfate 2 mg Q30M PRN IV 03/30/24 19:15 Acetaminophen/ Hydrocodone Bitart 1 tab Q8HPRN PRN PO 03/31/24 05:15 04/03/24 17:33 1 TAB Enoxaparin Sodium 90 mg Q12HR SC 03/31/24 22:00 04/03/24 09:05 90 MG Lorazepam 1 mg ONCE PRN IV 04/01/24 00:30 Temazepam 30 mg HS PRN PO 04/02/24 22:00 objective General: the patient is well developed and nourished. No acute distress. MUSCULOSKELETAL EXAM: Pain in the knees, worse in the left one MENTAL STATUS: Awake and alert. Oriented to person, place, time and general circumstances. Able to give personal history SPEECH, LANGUAGE, HIGHER CORTICAL FUNCTION: no aphasia or dysathria. CRANIAL NERVES: Pupils are equal, round and reactive. EOMs full and conjugate. Mild bilateral gaze evoked nystagmus. Facial sensation intact in all three divisions bilaterally. Mandibular strength intact. Facial muscles symmetrical and strength intact. SENSATION: Sensation to touch and pinprick is normal. MOTOR: Normal tone in the upper and lower extremity. Normal muscle bulk. No fasciculations. No abnormal movements or posturing. Muscle strength of the major groups in the extremities is 5/5. REFLEXES: Deep tendon reflexes are symmetrical. No pathological reflexes. CEREBELLAR/COORDINATION: Finger to nose is bilaterally. GAIT/STATION: deferred laboratory and microbiology Laboratory Tests 04/01/24 07:24 Test 04/01/24 07:24 Range/Units Serum Glucose 81 74-106 mg/dL Problem List Passing out with prolonged postictal confusion ? Syncope secondary to arrhythmia ? Stroke ? Seizure New onset atrial fibrillation She does not drive Assessment/Plan Monitoring Supportive treatment Telemetry UDS Lovenox 90 mg subQ q.12 hours Trial of Restoril 30 mg HS p.r.n. for insomnia Current pain management Syncope precautions discussed Good hydration/avoid dehydration DVT prophylax Cardiology on case More recommendation per clinical course This medical document was created using an electronic medical record system with [employer] dictation system. Although this document has been carefully reviewed, there may still be some phonetic and typographical errors. These areas are purely typographical due to imperfections of the software programs, and do not reflect any compromise in the patient's medical care. Prognosis poor Plan discussed with: Patient, Other FELICIA THOMPSON MD Apr 03, 2024 20:59
[2024-04-03] MEDS: TEMAZEPAM 15 MG CAP PO PRN (21:48)
--- NOTE | 2024-04-03 23:21 | DVHPN2 ---
Progress Note - Dictate Date Seen: Apr 03, 2024 Medical Necessity Reason Pt with a Central, PICC or Fol: No Subjective Patient was seen and evaluated in follow up. No overnight events. Patient is complaining of generalized pain. No new labs today. Telemetry reviewed. vital signs Vital Sign Date Time Temp Pulse Resp B/P (MAP) Pulse Ox O2 Delivery O2 Flow Rate FiO2 04/03/24 13:00 97.8 92 18 100/71 (81) 93 97.8 04/03/24 08:00 Room Air* 0 21 Total Intake and Output 04/02/24 04/02/24 04/03/24 15:00 23:00 07:00 Intake Total 500 ml 800 ml Output Total 600 ml Balance -100 ml 800 ml medications Current Medications Medications Dose Ordered Sig/Vidal Route Start Time Stop Time Status Last Admin Dose Admin Albuterol 2.5 mg Q6HPRN PRN NEB 03/30/24 19:15 Fluoxetine HCl 20 mg DAILY PO 03/31/24 10:00 04/03/24 09:04 20 MG Ondansetron HCl 4 mg Q4HP PRN IV 03/30/24 19:15 04/01/24 03:04 4 MG Acetaminophen 650 mg Q6HP PRN PO 03/30/24 19:15 04/03/24 09:04 650 MG Nitroglycerin 0.4 mg Q5MINP PRN SL 03/30/24 19:15 Morphine Sulfate 2 mg Q30M PRN IV 03/30/24 19:15 Acetaminophen/ Hydrocodone Bitart 1 tab Q8HPRN PRN PO 03/31/24 05:15 04/03/24 06:05 1 TAB Enoxaparin Sodium 90 mg Q12HR SC 03/31/24 22:00 04/03/24 09:05 90 MG Lorazepam 1 mg ONCE PRN IV 04/01/24 00:30 Temazepam 30 mg HS PRN PO 04/02/24 22:00 objective GENERAL: Awake, alert, oriented. LUNGS: Clear. CARDIOVASCULAR: Heart sounds are good. ABDOMEN: Soft. laboratory and microbiology Laboratory Tests 04/01/24 07:24 Test 04/01/24 07:24 Range/Units Serum Glucose 81 74-106 mg/dL Problem List Syncope, rule out cardiac etiology. Atrial fibrillation, newly diagnosed. Rule out structural heart disease. Hypertension. Morbid obesity. Assessment/Plan Continued all current supportive medical care. DVT prophylactics. Morphine and [place] for pain management. Additional plan as per the hospital course. Plan discussed with: Patient BRITTNEY MORRIS MD Apr 03, 2024 16:51
[2024-04-04 01:00] VITALS: BP 120/55; PULSE 80; RESP 17; TEMP 97.9; O2SAT 96
[2024-04-04 05:00] VITALS: BP 119/60; PULSE 94; RESP 18; TEMP 97.6; O2SAT 92
[2024-04-04 08:00] VITALS: PULSE 88
[2024-04-04 09:00] VITALS: BP 129/91; PULSE 88; RESP 16; TEMP 98; O2SAT 94
[2024-04-04 13:00] VITALS: BP 138/81; PULSE 90; RESP 17; TEMP 97.8; O2SAT 93
[2024-04-04] MEDS ORDERED: APIX2.5T PO (14:36)
--- NOTE | 2024-04-04 14:40 | DVHDS2 ---
Discharge Summary Date of Admission Mar 30, 2024 at 19:05 Date of Discharge: Apr 04, 2024 Admitting Diagnosis Syncope Wounds: None Labs/Diagnostic Data: Laboratory Results Test 04/01/24 07:24 03/31/24 16:00 03/31/24 14:42 03/31/24 10:34 White Blood Count 4.3 10^3/uL (4.4-10.8) Red Blood Count 4.40 10^6/uL (4.0-5.20) Hemoglobin 13.5 g/dL (12.2-16.2) Hematocrit 40.5 % (36.0-46.0) Mean Corpuscular Volume 92.2 fL (80.0-100.0) Mean Corpuscular Hemoglobin 30.7 pg (28.0-32.0) Mean Corpuscular Hemoglobin Concent 33.3 g/dL (32.0-36.0) Red Cell Distribution Width 13.5 % (11.8-14.3) Platelet Count 200 10^3/uL (140-450) Mean Platelet Volume 7.8 fL (6.9-10.8) Neutrophils (%) (Auto) 53.5 % (37.0-80.0) Lymphocytes (%) (Auto) 29.4 % (10.0-50.0) Monocytes (%) (Auto) 10.4 % (0.0-12.0) Eosinophils (%) (Auto) 5.8 % (0.0-7.0) Basophils (%) (Auto) 0.9 % (0.0-2.0) Neutrophils # (Auto) 2.3 10 ^3/uL (1.6-8.6) Lymphocytes # (Auto) 1.3 10 ^3/uL (0.4-5.4) Monocytes # (Auto) 0.5 10 ^3/uL (0-1.3) Eosinophils # (Auto) 0.2 10 ^3/uL (0-0.8) Basophils # (Auto) 0 10 ^3/uL (0-0.2) Nucleated Red Blood Cells 0.1 % Sodium Level 138 mmol/L (136-145) Potassium Level 4.0 mmol/L (3.5-5.1) Chloride Level 105 mmol/L (98-107) Carbon Dioxide Level 26 mmol/L (20-31) Anion Gap 7 (5-15) Blood Urea Nitrogen 16 mg/dL (9-23) Creatinine 0.78 mg/dL (0.550-1.02) Glomerular Filtration Rate Calc 77 mL/min (>90) BUN/Creatinine Ratio 20.5 (10.0-20.0) Serum Glucose 81 mg/dL (74-106) Calcium Level 9.5 mg/dL (8.7-10.4) Influenza Type A Antigen Negative (Negative) Influenza Type B Antigen Negative (Negative) SARS-CoV-2 Antigen (Rapid) Negative (NEGATIVE) D-Dimer, Quantitative 0.80 mg/L FEU (0.0-0.49) Urine Color Yellow (Yellow) Urine Clarity Clear (Clear) Urine pH 5.5 (5.0-9.0) Urine Specific [place] 1.030 (1.001-1.035) Urine Protein Negative (Negative) Urine Ketones Negative (Negative) Urine Blood Negative /uL (Negative) Urine Nitrite Negative (Negative) Urine Bilirubin Negative (Negative) Urine Urobilinogen 3 mg/dL (Negative) Urine Leukocyte Esterase Negative /uL (Negative) Urine RBC None seen /hpf (0 - 4) Urine Microscopic WBC 1 /HPF (0-5) Urine Squamous Epithelial Cells Few /hpf (<5) Urine Bacteria Few /hpf (None Seen) Urine Glucose Normal mg/dL (Normal) Test 03/31/24 07:00 03/30/24 10:49 Hemoglobin A1c 4.8 % A1C (<5.7) Magnesium Level 2.0 mg/dL (1.6-2.6) Triglycerides Level 81 mg/dL (< 150) Cholesterol Level 186 mg/dL (< 200) LDL Cholesterol 128 mg/dL (< 100) HDL Cholesterol 51 mg/dL (40-59) Thyroid Stimulating Hormone (TSH) 2.24 uIU/mL (0.55-4.78) Troponin I High Sensitivity 7 ng/L (</=34) Other Laboratory Tests 04/01/24 07:24 Brief Hx & Hospital Course: 58-year-old female with a history of COPD depression morbid obesity asthma came in for syncopal episode. CBC with a normal limits complete metabolic panel with a normal limits CT head negative chest x-ray negative carotid ultrasound negative EEG negative echocardiogram 60 percent ejection fraction seen by barrel assembler Dr. Stout and seen by Neurology Dr. Westbrook vent was placed on Lovenox therapeutic dose for new onset AFib which probably is causing syncope. Alison test negative flu test is negative seizures ruled out by negative EEG. Patient discharged home on Eliquis she will follow up with the primary Dr. At the time of discharge patient is alert awake oriented x3 ambulating stable vital signs. Consults/Reason for consult Neurology Dr. Westbrook Cardiology Dr. Stout Operations or Procedures CT head Carotid ultrasound Echocardiogram EEG Condition at Discharge: Fair Final Diagnosis/Problems List Syncope secondary to AFib CBC with normal limits complete metabolic panel with normal limits CT head negative, chest x-ray negative carotid ultrasound negative, EEG negative, echocardiogram 40 percent ejection fraction, cardiology consult by Dr. Stout appreciated, neurology consult appreciated New onset AFib: Lovenox 1 milligram/kilos subQ b.i.d. Alison test negative Flu test negative COPD Depression Hypotension Morbid obesity Asthma Seizures ruled out , EEG negative Discharge Disposition: Home Discharge Instruct/Medications Diet: Cardiac 2g Na,low cholest Activity: Light activity Follow Up/Referral: Use medications as prescribed Follow up with your primary Dr in one week Resume all previous home medications Medications: Eliquis 2.5 mg p.o. b.i.d. 180 Transmitted to pharmacy 35 (Time taken for discharge summary 35 minutes) Discharge Statement: "Patient was advised to return to the ER or call 911 if any headaches, dizziness, shortness of breath, chest pain, abdominal pain, bleeding, fevers, or worsening of medical condition. Patient was counseled about treatment plan, medications, possible side effects, patientverbalized understanding. All questions were answered to the best of my ability. This discharge took greater then 30 minutes in planning, reviewing documentation, counseling the patient, and discussing with other team members." ASSESSMENT ASSESSMENT Hospital Course Uneventful Assessment Syncope secondary to AFib CBC with normal limits complete metabolic panel with normal limits CT head negative, chest x-ray negative carotid ultrasound negative, EEG negative, echocardiogram 40 percent ejection fraction, cardiology consult by Dr. Stout appreciated, neurology consult appreciated New onset AFib: Lovenox 1 milligram/kilos subQ b.i.d. Alison test negative Flu test negative COPD Depression Hypotension Morbid obesity Asthma Seizures ruled out , EEG negative Date of Service: Apr 04, 2024 Billing Provider: GRETEL PIERCE MD Common Visit Codes: 29509-RAW/OBS DISCH DAY >30min GRETEL PIERCE MD Apr 04, 2024 14:40
--- NOTE | 2024-04-04 22:01 | DVHPN2 ---
Progress Note - Dictate Date Seen: Apr 04, 2024 Medical Necessity Reason Pt with a Central, PICC or Fol: No Subjective Patient was seen and evaluated in follow up. Patient has no new complaints at this time. Patient denies any cardiac symptoms. Patient is cardiac stable for discharge. Telemetry reviewed. vital signs Vital Sign Date Time Temp Pulse Resp B/P (MAP) Pulse Ox O2 Delivery O2 Flow Rate FiO2 04/04/24 13:00 97.8 90 17 138/81 (100) 93 97.8 04/04/24 08:00 Room Air* 0 21 Total Intake and Output 04/03/24 04/03/24 04/04/24 15:00 23:00 07:00 Intake Total 550 ml 850 ml Balance 550 ml 850 ml objective GENERAL: Awake, alert, oriented. LUNGS: Clear. CARDIOVASCULAR: Heart sounds are good. ABDOMEN: Soft. laboratory and microbiology Laboratory Tests 04/01/24 07:24 Test 04/01/24 07:24 Range/Units Serum Glucose 81 74-106 mg/dL Problem List Syncope, rule out cardiac etiology. Atrial fibrillation, newly diagnosed. Hypertension. Morbid obesity. Assessment/Plan Continued all current supportive medical care. DVT prophylactics. Morphine and [place] for pain management. Additional plan as per the hospital course. Plan discussed with: Patient BRITTNEY MORRIS MD Apr 04, 2024 22:01
== END 2024-04-04 15:56 | disposition home or self-care (01) | DRG 310 ==
LOC: EDBD 10:07 → ER 10:07 → TELE 19:05 → TELE-WESTW 03-31 03:00
PROVIDERS: ADMIT Nurse Practitioner; ATTEND Family Medicine
DX: I48.0 Paroxysmal atrial fibrillation (principal); I95.9 Hypotension, unspecified; E66.01 Morbid (severe) obesity due to excess calories; Z68.39 Body mass index [BMI] 39.0-39.9, adult; J44.89 Other specified chronic obstructive pulmonary disease; F32.A Depression, unspecified; F17.200 Nicotine dependence, unspecified, uncomplicated; I08.1 Rheumatic disorders of both mitral and tricuspid valves; I10 Essential (primary) hypertension; Z82.49 Family history of ischemic heart disease and other diseases of the circulatory system; Z79.899 Other long term (current) drug therapy; Z79.51 Long term (current) use of inhaled steroids
CPT/HCPCS: 36415; 70450; 70551; 71045; 80048; 80061; 81001; 83036; 83735; 84443; 84484; 85025; 85379; 87426; 87804; 93005; 93017; 93306; 93886; 95819; 99291; G0378; J2405